=== PATIENT | female | born 1990 | race Caucasian/White ===

== ENCOUNTER 2024-08-15 00:11 | Inpatient (IN) | payer OTHER ==
[2024-08-15] MEDS: HYDROmorphone 1 MG/ML 1 ML SYRINGE IVP STA ×4 (00:33→04:14)
[2024-08-15] MEDS: KETOROLAC 15 MG/ML 1 ML VIAL IVP STA ×2 (00:34→02:06)
[2024-08-15] MEDS: SODIUM CHLORIDE 0.9% 1,000 ML IV STA ×3 (00:35→03:38)
[2024-08-15] MEDS: ONDANSETRON 4 MG/2 ML VIAL IVP STA (00:35)
[2024-08-15 00:40] LABS: Basophils % (A) 0 %; Eosinophils # (A) 0.4 k/uL (0-0.7); Eosinophils % (A) 3 %; HCT 43.7 % (34.0-46.0); HGB 14.3 gm/dL (11.4-16.0); Lymphocytes % (A) 16 %; MCH 28.6 pg (25.0-35.0); MCHC 32.7 g/dL (31.0-37.0); MCV 87.3 fL (80.0-100.0); Mean Platelet Volume 7.4; Monocytes # (A) 0.5 k/uL (0-1.0); Monocytes % (A) 4 %; Neutrophils # (A) 9.8 k/uL (1.3-7.7); Neutrophils % (A) 76 %; Platelet Count 228 k/uL (150-450); RBC 5.01 m/uL (3.80-5.40); RDW 13.8 % (11.5-15.5); WBC 12.9 k/uL (3.8-10.6)
--- NOTE | 2024-08-15 00:48 | ED ---
Back Pain HPI - General Chief Complaint: Back Pain/Injury Stated Complaint: Flank Pain Time Seen by Provider: 08/15/24 00:17 Source: patient, family, RN notes reviewed Limitations: no limitations - History of Present Illness Initial Comments: This is a 34-year-old female who presents to the emergency department for left flank pain. States that it started about 3 hours prior to arrival. She has associated nausea and vomiting. She does have a history of kidney stones and medullary sponge kidney. Most recent kidney stone was several years ago. States that this turned into a septic stone and she was managed with a lithotripsy. Pain feels like the last time she passed a kidney stone. MD Complaint: back pain - Related Data Allergies Allergy/AdvReac Type Severity Reaction Status Date / Time latex Allergy Rash/Hives Verified 08/15/24 00:15 Review of Systems ROS Statement: Those systems with pertinent positive or pertinent negative responses have been documented in the HPI. ROS Other: All systems not noted in ROS Statement are negative. Past Medical History Additional Past Medical History / Comment(s): Kidney disorder History of Any Multi-Drug Resistant Organisms: None Reported Past Surgical History: Section Past Psychological History: No Psychological Hx Reported Smoking Status: Current every day smoker Past Alcohol Use History: None Reported Past Drug Use History: None Reported General Exam Limitations: no limitations General appearance: alert, in distress Head exam: Present: atraumatic, normocephalic, normal inspection Respiratory exam: Present: normal lung sounds bilaterally. Absent: respiratory distress, wheezes, rales, rhonchi, stridor Cardiovascular Exam: Present: regular rate, normal rhythm, normal heart sounds. Absent: systolic murmur, diastolic murmur, rubs, gallop, clicks GI/Abdominal exam: Present: soft, tenderness (Left mid to lower abdomen), normal bowel sounds. Absent: distended Back exam: Present: CVA tenderness (L). Absent: CVA tenderness (R) Neurological exam: Present: alert, oriented X3, CN II-XII intact Psychiatric exam: Present: normal affect, normal mood Skin exam: Present: warm, dry, intact, normal color. Absent: rash Course Vital Signs 08/15/24 08/15/24 00:13 04:08 Temperature 98.1 F Pulse Rate 54 L 69 Respiratory 18 18 Rate Blood Pressure 141/94 109/71 O2 Sat by Pulse 99 98 Oximetry Medical Decision Making - Medical Decision Making This is a 34-year-old female who presents to the emergency department for left flank pain. Was pt. sent in by a medical professional or institution? @ -No Did you speak to anyone other than the patient for history? @ -No Did you review nursing and triage notes? @ -Yes, and I agree, it is accurate with regards to the patient's symptoms. Were old charts reviewed? @ -No Differential Diagnosis? @ -Differential Flank Pain: UTI, pyelonephritis, kidney stone, musculoskeletal, pancreatitis, cholecystitis, this is not meant to be an all-inclusive list. EKG interpreted by me (3pts min.)? @ -Not obtained X-rays interpreted by me (1pt min.)? @ -Not obtained CT interpreted by me (1pt min.)? @ -CT scan of the abdomen and pelvis obtained. My interpretation identifies a left ureteral calculus. U/S interpreted by me (1pt. min.)? @ -Not obtained What testing was considered but not performed? (CT, X-rays, U/S, labs)? Why? @ -None What meds were considered but not given? Why? @ -None Did you discuss the management of the patient with other professionals? @ -Yes, Dr. Curry, urology, who is agreeable to admission with urology as consult. Did you reconcile home meds? @ -No Was smoking cessation discussed for >3mins.? @ -No Was critical care preformed (if so, how long)? @ -No Were there social determinants of health that impacted care today? How? (Homelessness, low income, unemployed, alcoholism, drug addiction, transportation, low edu. Level, literacy, decrease access to med. care, senior care, rehab)? @ -No Was there de-escalation of care discussed even if they declined? (Discuss DNR or withdrawal of care, Hospice)? @ -No What co-morbidities impacted this encounter? (DM, HTN, Smoking, COPD, CAD, Cancer, CVA, Hep., AIDS, mental health diagnosis, sleep apnea, morbid obesity)? @ -None Was patient admitted / discharged? @ -Admitted. Lab work demonstrates leukocytosis with a white blood cell count of 12.9. Urinalysis consistent with infection and a large amount of blood. Urine sent for culture. CT scan of the abdomen and pelvis demonstrates a 6 mm obstructing stone in the left proximal ureter with hydroureter, hydronephrosis, and perinephric stranding. Her pain was very difficult to manage. She received a total of 4 mg of Dilaudid and 30 mg of Toradol over a few hours and continued to complain of 10 out of 10 pain. IV fluids and Zofran administered as well. Given the patient's intractable pain with associated infection, she was admitted to medicine with urology consult. Case discussed with Dr. Curry who is in agreement. She was given 2 g of Rocephin for associated UTI and blood culture obtained as well. Patient also kept n.p.o. per urology request. Case discussed with ED attending Dr. Green. Undiagnosed new problem with uncertain prognosis? @ -None Drug Therapy requiring intensive monitoring for toxicity (Heparin, Nitro, Insulin, Cardizem)? @ -None Were any procedures done? @ -None Diagnosis/symptom? @ -Left ureteral calculus, UTI, intractable pain Acute, or Chronic, or Acute on Chronic? @ -Acute Uncomplicated (without systemic symptoms) or Complicated (systemic symptoms)? @ -Complicated Side effects of treatment? @ -None Exacerbation, Progression, or Severe Exacerbation] @ -Not applicable Poses a threat to life or bodily function? @ -Yes, patient is unable to function with her level of discomfort. - Lab Data Result diagrams: 08/15/24 00:28 08/15/24 00:28 Lab Results 08/15/24 08/15/24 08/15/24 Range/Units 00:28 00:28 00:28 WBC 12.9 H (3.8-10.6) k/uL RBC 5.01 (3.80-5.40) m/uL Hgb 14.3 (11.4-16.0) gm/dL Hct 43.7 (34.0-46.0) % MCV 87.3 (80.0-100.0) fL MCH 28.6 (25.0-35.0) pg MCHC 32.7 (31.0-37.0) g/dL RDW 13.8 (11.5-15.5) % Plt Count 228 (150-450) k/uL MPV 7.4 Neutrophils % 76 % Lymphocytes % 16 % Monocytes % 4 % Eosinophils % 3 % Basophils % 0 % Neutrophils # 9.8 H (1.3-7.7) k/uL Lymphocytes # 2.0 (1.0-4.8) k/uL Monocytes # 0.5 (0-1.0) k/uL Eosinophils # 0.4 (0-0.7) k/uL Basophils # 0.0 (0-0.2) k/uL Sodium 138 (137-145) mmol/L Potassium 3.9 (3.5-5.1) mmol/L Chloride 110 H (98-107) mmol/L Carbon Dioxide 22 (22-30) mmol/L Anion Gap 6 mmol/L BUN 13 (7-17) mg/dL Creatinine 0.69 (0.52-1.04) mg/dL Est GFR (CKD-EPI)AfAm >90 (>60 ml/min/1.73 sqM) Est GFR (CKD-EPI)NonAf >90 (>60 ml/min/1.73 sqM) Glucose 111 H (74-99) mg/dL Plasma Lactic Acid Erich 0.9 (0.7-2.0) mmol/L Calcium 9.6 (8.4-10.2) mg/dL Total Bilirubin 0.6 (0.2-1.3) mg/dL AST 28 (14-36) U/L ALT 21 (4-34) U/L Alkaline Phosphatase 70 (38-126) U/L Total Protein 7.1 (6.3-8.2) g/dL Albumin 4.5 (3.5-5.0) g/dL HCG, Qual Not Detected Urine Color Urine Appearance (Clear) Urine pH (5.0-8.0) Ur Specific [place] (1.001-1.035) Urine Protein (Negative) Urine Glucose (UA) (Negative) Urine Ketones (Negative) Urine Blood (Negative) Urine Nitrite (Negative) Urine Bilirubin (Negative) Urine Urobilinogen (<2.0) mg/dL Ur Leukocyte Esterase (Negative) Urine RBC (0-5) /hpf Urine WBC (0-5) /hpf Ur Squamous Epith Cells (0-4) /hpf Urine Bacteria (None) /hpf Urine Mucus (None) /hpf Urine HCG, Qual (Not Detectd) 08/15/24 08/15/24 Range/Units 03:46 03:46 WBC (3.8-10.6) k/uL RBC (3.80-5.40) m/uL Hgb (11.4-16.0) gm/dL Hct (34.0-46.0) % MCV (80.0-100.0) fL MCH (25.0-35.0) pg MCHC (31.0-37.0) g/dL RDW (11.5-15.5) % Plt Count (150-450) k/uL MPV Neutrophils % % Lymphocytes % % Monocytes % % Eosinophils % % Basophils % % Neutrophils # (1.3-7.7) k/uL Lymphocytes # (1.0-4.8) k/uL Monocytes # (0-1.0) k/uL Eosinophils # (0-0.7) k/uL Basophils # (0-0.2) k/uL Sodium (137-145) mmol/L Potassium (3.5-5.1) mmol/L Chloride (98-107) mmol/L Carbon Dioxide (22-30) mmol/L Anion Gap mmol/L BUN (7-17) mg/dL Creatinine (0.52-1.04) mg/dL Est GFR (CKD-EPI)AfAm (>60 ml/min/1.73 sqM) Est GFR (CKD-EPI)NonAf (>60 ml/min/1.73 sqM) Glucose (74-99) mg/dL Plasma Lactic Acid Erich (0.7-2.0) mmol/L Calcium (8.4-10.2) mg/dL Total Bilirubin (0.2-1.3) mg/dL AST (14-36) U/L ALT (4-34) U/L Alkaline Phosphatase (38-126) U/L Total Protein (6.3-8.2) g/dL Albumin (3.5-5.0) g/dL HCG, Qual Urine Color Light Yellow Urine Appearance Cloudy H (Clear) Urine pH 7.0 (5.0-8.0) Ur Specific [place] 1.014 (1.001-1.035) Urine Protein Trace H (Negative) Urine Glucose (UA) Negative (Negative) Urine Ketones Negative (Negative) Urine Blood Large H (Negative) Urine Nitrite Negative (Negative) Urine Bilirubin Negative (Negative) Urine Urobilinogen <2.0 (<2.0) mg/dL Ur Leukocyte Esterase Large H (Negative) Urine RBC >182 H (0-5) /hpf Urine WBC >182 H (0-5) /hpf Ur Squamous Epith Cells 3 (0-4) /hpf Urine Bacteria Many H (None) /hpf Urine Mucus Occasional H (None) /hpf Urine HCG, Qual Not Detected (Not Detectd) - Radiology Data Radiology results: report reviewed, image reviewed Disposition Clinical Impression: Left ureteral calculus, UTI (urinary tract infection), Intractable pain Disposition: ADMITTED IP TO THIS HOSP Referrals: Joel Rodriguez [Primary Care Provider] - 1-2 days
[2024-08-15 00:55] LABS: ALT 21 U/L (4-34); AST 28 U/L (14-36); African American GFR (CKD) >90 (>60 ml/min/1.73 sqM); Albumin 4.5 g/dL (3.5-5.0); Alkaline Phosphatase 70 U/L (38-126); Anion Gap 6 mmol/L; Blood Urea Nitrogen 13 mg/dL (7-17); Calcium 9.6 mg/dL (8.4-10.2); Carbon Dioxide 22 mmol/L (22-30); Chloride 110 mmol/L (98-107); Glucose 111 mg/dL (74-99); Non-African American GFR(CKD) >90 (>60 ml/min/1.73 sqM); Potassium 3.9 mmol/L (3.5-5.1); Sodium 138 mmol/L (137-145); Total Bilirubin 0.6 mg/dL (0.2-1.3); Total Protein 7.1 g/dL (6.3-8.2)
[2024-08-15 01:08] LABS: HCG,Qualitative Serum Not Detected
--- NOTE | 2024-08-15 02:38 | CT ---
EXAM: CT Abdomen and Pelvis Without Intravenous Contrast CLINICAL HISTORY: Poss kindey stone, Left flank pain TECHNIQUE: Axial computed tomography images of the abdomen and pelvis without intravenous contrast. CTDI is 6.3 mGy and DLP is 375.1 mGy-cm. This CT exam was performed using one or more of the following dose reduction techniques: automated exposure control, adjustment of the mA and/or kV according to patient size, and/or use of iterative reconstruction technique. Coronal and sagittal reformatted images were created and reviewed. 478 images COMPARISON: No relevant prior studies available. FINDINGS: Lung bases: Unremarkable. No mass. No consolidation. ABDOMEN: Liver: Unremarkable. Gallbladder and bile ducts: Unremarkable. No calcified stones. No ductal dilation. Pancreas: Unremarkable. No ductal dilation. Spleen: Unremarkable. No splenomegaly. Adrenals: Unremarkable. No mass. Kidneys and ureters: Multiple nonobstructing stones in each kidney, measuring up to 6 mm. 6 mm obstructing stone in the proximal left ureter, about 7.5 cm from renal pelvis causes mild hydroureter, hydronephrosis and perinephric stranding. Stomach and bowel: Unremarkable. No obstruction. No mucosal thickening. PELVIS: Appendix: Normal appendix. Bladder: Unremarkable. No stones. Reproductive: Unremarkable as visualized. ABDOMEN and PELVIS: Intraperitoneal space: Unremarkable. No free air. No significant fluid collection. Bones/joints: No acute findings. Soft tissues: Unremarkable. Vasculature: Unremarkable. No abdominal aortic aneurysm. Lymph nodes: Unremarkable. No enlarged lymph nodes. IMPRESSION: 6 mm obstructing stone in the proximal left ureter, about 7.5 cm from renal pelvis causes mild hydroureter, hydronephrosis and perinephric stranding.
[2024-08-15 04:32] LABS: Appearance,Urine Cloudy (Clear); Bacteria,Urine Many /hpf; Bilirubin,Urine Negative (Negative); Blood,Urine Large (Negative); Color,Urine Light Yellow; Glucose,Urine (UA) Negative (Negative); Ketones,Urine Negative (Negative); Leukocyte Esterase,Urine Large (Negative); Mucus,Urine Occasional /hpf; Nitrite,Urine Negative (Negative); Protein,Urine Trace (Negative); RBC,Urine >182 /hpf (0-5); Specific Gravity,Urine 1.014 (1.001-1.035); Squamous Epithelial Cell,Urine 3 /hpf (0-4); Urobilinogen,Urine <2.0 mg/dL (<2.0); WBC,Urine >182 /hpf (0-5)
[2024-08-15] MEDS ORDERED: ACETAMINOPHEN TAB 325 MG TAB PO PRN (05:10)
[2024-08-15] MEDS ORDERED: ONDANSETRON 4 MG/2 ML VIAL IVP PRN (05:10)
[2024-08-15] MEDS ORDERED: NALOXONE 0.4 MG/ML 1 ML VIAL IV PRN (05:10)
[2024-08-15] MEDS: FAMOTIDINE 20 MG/2 ML VIAL IV SCH (07:55)
[2024-08-15] MEDS: HYDROmorphone 1 MG/ML 1 ML SYRINGE IVP PRN (07:57)
[2024-08-15] MEDS: SODIUM CHLORIDE 0.9% 1,000 ML IV SCH (07:59)
[2024-08-15] MEDS: HEPARIN SODIUM,PORCINE 5,000 UNIT/ML 1 ML VIAL SQ SCH (08:12)
[2024-08-15] MEDS: KETOROLAC 15 MG/ML 1 ML VIAL IVP PRN (09:38)
[2024-08-15] MEDS: IV FLUID CONTINUATION 1,000 ML IV ONE ×2 (11:56)
--- NOTE | 2024-08-15 12:01 | P.GSCN ---
History of Present Illness Consult date: 08/15/24 Reason for Consult: Left ureteral stone History of present illness: This is a 34-year-old female with a history of recurrent kidney stones. Pr esented to the hospital with left-sided flank pain, patient was having intractable pain in the ER. Underwent a CT abdomen pelvis that showed evidence of a 6 mm left-sided proximal stone and a multiple left-sided renal stones. Patient continues to have pain despite IV pain medications. Denies any dysuria or gross hematuria. Pain is associated with nausea and vomiting. She does have a history of recurrent kidney stones and has underwent left ureteroscopy in the past. Morning on evaluation she continues to have pain. Hemodynamically she is stable, urinalysis is concerning for UTI Past Medical History Additional Past Medical History / Comment(s): ALISON related to kidney stone UTI History of Any Multi-Drug Resistant Organisms: None Reported Past Surgical History: Section Additional Past Surgical History / Comment(s): Lithotripsy right side uretal stent Additional Past Anesthesia/Blood Transfusion Reaction / Comm: NA Past Psychological History: Anxiety Smoking Status: Current every day smoker Past Alcohol Use History: None Reported Past Drug Use History: None Reported - Past Family History Mother Family Medical History: Cancer Additional Family Medical History / Comment(s): breast CA, leukemia Father Family Medical History: Diabetes Mellitus Medications and Allergies Home Medications Medication Instructions Recorded Confirmed Type LORazepam [Ativan] 1 mg PO DAILY PRN 08/15/24 08/15/24 History Allergies Allergy/AdvReac Type Severity Reaction Status Date / Time latex Allergy Rash/Hives Verified 08/15/24 06:37 Surgical - Exam Vital Signs Temp Pulse Resp BP Pulse Ox 98.1 F 54 L 18 141/94 99 08/15/24 00:13 08/15/24 00:13 08/15/24 00:13 08/15/24 00:13 08/15/24 00:13 - General no distress, severe pain - Eyes normal ocular movement, no pale - ENT normal nares, normal mucosa - Respiratory normal expansion, normal respiratory effort - Abdomen Abdomen: soft, non tender - Psychiatric oriented to time, oriented to person, oriented to place Results - Labs 08/15/24 00:28 08/15/24 00:28 Abnormal Lab Results - Last 24 Hours (Table) 08/15/24 08/15/24 08/15/24 Range/Units 00:28 00:28 03:46 WBC 12.9 H (3.8-10.6) k/uL Neutrophils # 9.8 H (1.3-7.7) k/uL Chloride 110 H (98-107) mmol/L Glucose 111 H (74-99) mg/dL Urine Appearance Cloudy H (Clear) Urine Protein Trace H (Negative) Urine Blood Large H (Negative) Ur Leukocyte Esterase Large H (Negative) Urine RBC >182 H (0-5) /hpf Urine WBC >182 H (0-5) /hpf Urine Bacteria Many H (None) /hpf Urine Mucus Occasional H (None) /hpf Diabetes panel 08/15/24 Range/Units 00:28 Sodium 138 (137-145) mmol/L Potassium 3.9 (3.5-5.1) mmol/L Chloride 110 H (98-107) mmol/L Carbon Dioxide 22 (22-30) mmol/L BUN 13 (7-17) mg/dL Creatinine 0.69 (0.52-1.04) mg/dL Glucose 111 H (74-99) mg/dL Calcium 9.6 (8.4-10.2) mg/dL AST 28 (14-36) U/L ALT 21 (4-34) U/L Alkaline Phosphatase 70 (38-126) U/L Total Protein 7.1 (6.3-8.2) g/dL Albumin 4.5 (3.5-5.0) g/dL Calcium panel 08/15/24 Range/Units 00:28 Calcium 9.6 (8.4-10.2) mg/dL Albumin 4.5 (3.5-5.0) g/dL Pituitary panel 08/15/24 Range/Units 00:28 Sodium 138 (137-145) mmol/L Potassium 3.9 (3.5-5.1) mmol/L Chloride 110 H (98-107) mmol/L Carbon Dioxide 22 (22-30) mmol/L BUN 13 (7-17) mg/dL Creatinine 0.69 (0.52-1.04) mg/dL Glucose 111 H (74-99) mg/dL Calcium 9.6 (8.4-10.2) mg/dL Adrenal panel 08/15/24 Range/Units 00:28 Sodium 138 (137-145) mmol/L Potassium 3.9 (3.5-5.1) mmol/L Chloride 110 H (98-107) mmol/L Carbon Dioxide 22 (22-30) mmol/L BUN 13 (7-17) mg/dL Creatinine 0.69 (0.52-1.04) mg/dL Glucose 111 H (74-99) mg/dL Calcium 9.6 (8.4-10.2) mg/dL Total Bilirubin 0.6 (0.2-1.3) mg/dL AST 28 (14-36) U/L ALT 21 (4-34) U/L Alkaline Phosphatase 70 (38-126) U/L Total Protein 7.1 (6.3-8.2) g/dL Albumin 4.5 (3.5-5.0) g/dL Assessment and Plan Assessment: 34-year-old female with a 6 mm left-sided proximal stone and UTI. Is having intractable pain secondary to her stone. Discussed with her given the pain and a UTI the option of left-sided stent insertion. Risk benefit and rationale was discussed. Did discuss with her she will eventually require left-sided ureteroscopy with holmium laser and stent removal as an outpatient once her UTI resolves
[2024-08-15] MEDS ORDERED: KETOROLAC 15 MG/ML 1 ML VIAL ONE (12:08)
[2024-08-15] MEDS ORDERED: MIDAZOLAM 2 MG/2 ML VIAL ONE (12:08)
[2024-08-15] MEDS ORDERED: ceFAZolin 1 GM/50 ML BAG (PMX) ONE (12:08)
[2024-08-15] MEDS ORDERED: fentaNYL (PF) 50 MCG/ML 2 ML AMP ONE (12:08)
[2024-08-15] MEDS ORDERED: PROPOFOL 10 MG/ML 20 ML VIAL IV ONE (12:08)
[2024-08-15] MEDS ORDERED: LIDOCAINE 1% INJ 10MG/ML (20 ML MDV) ONE (12:08)
[2024-08-15] MEDS: ONDANSETRON 4 MG/2 ML VIAL IVP ONE (12:12)
[2024-08-15] MEDS: DEXAMETHASONE SOD PHOSPHATE 4 MG/ML 1 ML VIAL IVP ONE (12:12)
[2024-08-15] MEDS: SODIUM CHLORIDE 0.9% 100 ML with ceFAZolin 2,000 MG IV ONE (12:13)
--- NOTE | 2024-08-15 12:19 | P.EN ---
i came to see the pt and she was not in her room, as per bedside nurse she went to the OR We will continue to follow
--- NOTE | 2024-08-15 13:01 | FL ---
EXAMINATION TYPE: FL guidance operating room DATE OF EXAM: 08/15/2024 HISTORY: Fluoroscopy time Total dose area product (DAP) in uGy*m?, mGy*cm? (or similar): 4.5278 IMPRESSION: 1. Fluoroscopy time. [facility], , 08/15/2024 12:59 PM
--- NOTE | 2024-08-15 17:17 | P.OP ---
Date of Procedure: 08/15/24 Preoperative Diagnosis: Left ureteral stone Postoperative Diagnosis: Same Procedure(s) Performed: Cystoscopy, left ureteroscopy, and stent insertion Anesthesia: GETA Estimated Blood Loss (ml): 1 Pathology: none sent Condition: stable Disposition: PACU Indications for Procedure: 34-year-old female with a 6 mm left-sided proximal stone and UTI. Is having intractable pain secondary to her stone. Discussed with her given the pain and a UTI the option of left-sided stent insertion. Risk benefit and rationale was discussed. Did discuss with her she will eventually require left-sided ureteroscopy with holmium laser and stent removal as an outpatient once her UTI resolves Operative Findings: 2 left impacted distal ureteral stones Description of Procedure: Patient brought the operating, general anesthesia was induced. She was prepped and draped in sterile fashion placed in dorsolithotomy position. Cystoscopy fitted with a 22 [place] sheath was inserted per urethra, cystoscopy was performed which showed no abnormality within the bladder. Attention was then carried to the left ureteral orifice, at this point I advanced a sensor wire per ureteroscope and into the left ureteral orifice, resistance was met at the level of the stone, I did attempt to manipulate the wire but was unable to, of note patient had 2 distal radiopaque ureteral stones. At this time I switched to a Glidewire, and reattempted to advance the wire I was still unable to. At this point a semirigid ureteroscope was inserted per urethra and advanced up the left ureteral orifice, this point I saw stone at the distal ureter. I was able to navigate a sensor wire past the stone and into the kidney under fluoroscopy. Next the cystoscope was backloaded over the wire, next ureteral stent was passed over the wire, the proximal curl was visualized on fluoroscopy and the distal curl was visualized using the cystoscope. The bladder was emptied at the end of the case. Patient tolerated procedure was taken to recovery in stable condition
[2024-08-15] MEDS: LORazepam 1 MG TAB PO STA (21:39)
[2024-08-16] MEDS: HYDROmorphone 0.5 MG/0.5 ML SYRINGE IVP PRN (08:16)
[2024-08-16 09:13] LABS: Basophils # (A) 0.05 X 10*3/uL (0.00-0.10); Basophils % (A) 0.4 %; Eosinophils # (A) 0.09 X 10*3/uL (0.04-0.35); Eosinophils % (A) 0.7 %; HCT 38.8 % (37.2-46.3); HGB 12.3 g/dL (12.0-15.0); Lymphocytes # (A) 1.33 X 10*3/uL (0.90-5.00); Lymphocytes % (A) 10.9 %; MCH 28.7 pg (27.0-32.0); MCHC 31.7 g/dL (32.0-37.0); MCV 90.4 FL (80.0-97.0); Monocytes # (A) 0.52 X 10*3/uL (0.20-1.00); Monocytes % (A) 4.3 %; NRBC Per 100 WBC 0 X 10*3/uL (0.00-0.01); Neutrophils # (A) 10.15 X 10*3/uL (1.80-7.70); Neutrophils % (A) 83.4 %; Platelet Count 160 X 10*3/uL (140-440); RBC 4.29 X 10*6/uL (4.10-5.20); RDW 14.5 % (11.5-14.5); WBC 12.18 X 10*3/uL (4.50-10.00)
[2024-08-16 09:54] LABS: BUN/Creat Ratio 12.14 Ratio (12.00-20.00); Blood Urea Nitrogen 8.5 mg/dL (9.0-27.0); Calcium 8.3 mg/dL (8.7-10.3); Carbon Dioxide 23.5 mmol/L (21.6-31.8); Chloride 108 mmol/L (96-109); Glucose 89 mg/dL (70-110); Potassium 4.4 mmol/L (3.5-5.5); Sodium 142 mmol/L (135-145)
--- NOTE | 2024-08-16 10:49 | P.PN ---
Subjective Progress Note Date: 08/16/24 No acute overnight event, indicates pain has improved but is complaining of urinary frequency. Remains afebrile. Urine cultures growing gram-negative bacilli. Blood culture growing gram-positive cocci Objective - Vital Signs Vital signs: Vital Signs Temp 98.2 F 08/16/24 07:24 Pulse 67 08/16/24 07:24 Resp 16 08/16/24 07:24 BP 122/75 08/16/24 07:24 Pulse Ox 98 08/16/24 07:24 FiO2 Intake & Output 08/15/24 08/16/24 08/16/24 18:59 06:59 18:59 Intake Total 650 0 Output Total 1 Balance 649 0 Weight 63.503 kg Intake: IV 650 Oral 0 Output: Estimated Blood Loss 1 Other: Voiding Method Toilet Toilet Toilet # Voids 3 1 - Constitutional General appearance: Present: no acute distress - Gastrointestinal General gastrointestinal: Present: soft, tenderness. Absent: distended - Labs CBC & Chem 7: 08/16/24 06:04 08/16/24 06:04 Labs: Abnormal Lab Results - Last 24 Hours (Table) 08/16/24 08/16/24 08/16/24 Range/Units 06:04 06:04 06:04 WBC 12.18 H (4.50-10.00) X 10*3/uL MCHC 31.7 L (32.0-37.0) g/dL Neutrophils # 10.15 H (1.80-7.70) X 10*3/uL BUN 8.5 L (9.0-27.0) mg/dL Calcium 8.3 L (8.7-10.3) mg/dL Procalcitonin 12.60 H (0.02-0.50) ng/mL Microbiology - Last 24 Hours (Table) 08/15/24 03:46 Urine Culture - Preliminary Urine,Voided Gram Neg Bacilli 08/15/24 04:42 Blood Culture Gram Stain - Preliminary Blood Blood Culture - Preliminary Molecular ID Assessment and Plan Assessment: Status post left-sided stent insertion yesterday. Urine culture growing gram- negative bacilli blood culture growing gram-positive cocci. On presentation patient did not appear to be bacteremic and given that it is growing gram- positive cocci which is different from the urine culture most likely this is a contaminant, do recommend repeat a blood culture at this time. From urology standpoint she is okay for discharge once the urine culture is finalized. We w ill get her set up for an outpatient left-sided ureteroscopy with holmium laser possible right ureteroscopy with holmium laser of note she wants to address her right-sided stone also as an outpatient.
[2024-08-16] MEDS: OXYBUTYNIN XL 5 MG TAB.ER.24 PO SCH (11:45)
[2024-08-16] MEDS: LORazepam 1 MG TAB PO PRN (11:53)
[2024-08-16] MEDS ORDERED: VANCOMYCIN IV PER PHARMACY 1 EACH MISC MISCELLANE PRN (12:06)
[2024-08-16] MEDS: VANCOMYCIN 1,250 MG in SODIUM CHLORIDE 0.9% 250 ML IVPB SCH (14:08)
--- NOTE | 2024-08-16 17:36 | P.HPIM ---
History of Present Illness H&P Date: 08/16/24 History of present illness: This is a 34-year-old female with past medical history significant for recurrent kidney stone who presented to hospital with left-sided flank pain. Patient was noted to have intractable pain in the ED. Patient had a CT abdomen pelvis that showed evidence of 6 mm left-sided proximal stone and a multiple left-sided renal stones. Patient required IV pain medications for pain control. Patient denied any fever, chills, dysuria, hematuria. Patient complained of nausea v omiting associated with pain. REVIEW OF SYSTEMS: CONSTITUTIONAL: No fever, no malaise, no fatigue. HEENT: No recent visual problems or hearing problems. Denied any sore throat. CARDIOVASCULAR: No chest pain, orthopnea, PND, no palpitations, no syncope. PULMONARY: No shortness of breath, no cough, no hemoptysis. GASTROINTESTINAL: No diarrhea, no nausea, no vomiting, no abdominal pain. NEUROLOGICAL: No headaches, no weakness, no numbness. HEMATOLOGICAL: Denies any bleeding or petechiae. GENITOURINARY: Denies any burning micturition, frequency, or urgency. MUSCULOSKELETAL/RHEUMATOLOGICAL: Denies any joint pain, swelling, or any muscle pain. ENDOCRINE: Denies any polyuria or polydipsia. The rest of the 14-point review of systems is negative. PHYSICAL EXAMINATION: GENERAL: The patient is A&O x3, NAD HEENT: EOMI, Sclerae anicteric, Moist Mucous membranes Neck: Supple, Non tender, No JVD PULMONARY: Equal breath souds B/L, No wheezing, No crackles. CARDIOVASCULAR: S1, S2 present. No murmurs, rubs, or gallops. ABDOMEN: Soft, nontender, nondistended, normoactive bowel sounds. No guarding or rebound tenderness. MUSCULOSKELETAL: No edema, No cyanosis. No clubbing. Normal ROM. Intact peripheral pulses. NEUROLOGICAL: CN 2-12 grossly intact. No FND Assessment and plan: Left renal stone: UTI: Positive blood culture: Plan: Presented with left-sided flank pain, CT abdomen pelvis showed 6 mm left ureteral stone Urology consultedstatus post cystoscopy and left ureteral stent placement on 08/15. Pain control, requiring IV pain medications Urine culture growing gram-negative bacilli Blood culture growing GPC ID consulted Continue Rocephin DVT prophylaxis Heparin Monitor vital signs and labs Labs and medication were reviewed. Continue same treatment. Further recommendations as per clinical course of the patient Dictation was produced using [employer] dictation software. please excuse any grammatical, word or spelling errors. Past Medical History Additional Past Medical History / Comment(s): ALISON related to kidney stone UTI History of Any Multi-Drug Resistant Organisms: None Reported Past Surgical History: Section Additional Past Surgical History / Comment(s): Lithotripsy right side uretal stent Additional Past Anesthesia/Blood Transfusion Reaction / Comment(s): NA Past Psychological History: Anxiety Smoking Status: Current every day smoker Past Alcohol Use History: None Reported Past Drug Use History: None Reported - Past Family History Mother Family Medical History: Cancer Additional Family Medical History / Comment(s): breast CA, leukemia Father Family Medical History: Diabetes Mellitus Medications and Allergies Home Medications Medication Instructions Recorded Confirmed Type LORazepam [Ativan] 1 mg PO DAILY PRN 08/15/24 08/15/24 History Allergies Allergy/AdvReac Type Severity Reaction Status Date / Time latex Allergy Rash/Hives Verified 08/15/24 06:37 Physical Exam Vitals: Vital Signs Temp Pulse Resp BP BP Pulse Ox 08/16/24 13:32 98.6 F 74 16 119/74 99 08/16/24 07:24 98.2 F 67 16 122/75 98 08/16/24 01:51 97.9 F 60 16 112/70 98 08/15/24 20:00 16 08/15/24 19:17 99.6 F 87 16 112/60 97 Intake and Output 08/16/24 08/16/24 08/16/24 06:59 14:59 22:59 Other: Voiding Method Toilet # Voids 1 Results CBC & Chem 7: 08/16/24 06:04 08/16/24 06:04 Labs: Abnormal Lab Results - Last 24 Hours (Table) 08/16/24 08/16/24 08/16/24 Range/Units 06:04 06:04 06:04 WBC 12.18 H (4.50-10.00) X 10*3/uL MCHC 31.7 L (32.0-37.0) g/dL Neutrophils # 10.15 H (1.80-7.70) X 10*3/uL BUN 8.5 L (9.0-27.0) mg/dL Calcium 8.3 L (8.7-10.3) mg/dL Procalcitonin 12.60 H (0.02-0.50) ng/mL Microbiology - Last 24 Hours (Table) 08/15/24 03:46 Urine Culture - Preliminary Urine,Voided Gram Neg Bacilli 08/15/24 04:42 Blood Culture Gram Stain - Preliminary Blood Blood Culture - Preliminary Molecular ID Thrombosis Risk Factor Assmnt - Choose All That Apply Each Factor Represents 1 point: Minor surgery planned Other Risk Factors: No Other congenital or acquired thrombophilia - If yes, enter type in comment: No Thrombosis Risk Factor Assessment Total Risk Factor Score: 1 Thrombosis Risk Factor Assessment Level: Low Risk
[2024-08-16] MEDS: HYDROcodone/APAP 5-325MG 1 EACH TAB PO PRN (18:21)
--- NOTE | 2024-08-17 07:10 | P.CONS ---
History of Present Illness - Reason for Consult Consult date: 08/16/24 Bacteremia Requesting physician: Mahendra Pulido - Chief Complaint Left flank pain x 1 day - History of Present Illness Patient is a 34-year-old female with a past medical history significant for sepsis secondary to kidney stone anxiety current everyday smoker presenting to the hospital for evaluation of left flank pain symptoms started 3 hours before presentation to the hospital patient was describing the pain to be sharp almost 10 out of 10 in severity with associated nausea and vomiting patient on presentation to the hospital was afebrile no fever have been recorded subsequently patient was not tachycardic hypotensive or hypoxic she did have white count of 12.9 repeat is 12.18 creatinine 0.69 urine has been positive patient did have abdominal pelvis CT suggestive of 6 mm obstructive stone in the proximal left ureteral patient was evaluated by urology and the patient is status post left ureteral stent placement patient urine is growing gram-negative blood cultures came back positive with gram-positive cocci prompting this consultation Review of Systems Positive point and negatives has been mentioned in the HPI, complete review of systems was performed and all other systems are negative Past Medical History Additional Past Medical History / Comment(s): ALISON related to kidney stone UTI History of Any Multi-Drug Resistant Organisms: None Reported Past Surgical History: Section Additional Past Surgical History / Comment(s): Lithotripsy right side uretal stent Additional Past Anesthesia/Blood Transfusion Reaction / Comm: NA Past Psychological History: Anxiety Smoking Status: Current every day smoker Past Alcohol Use History: None Reported Past Drug Use History: None Reported - Past Family History Mother Family Medical History: Cancer Additional Family Medical History / Comment(s): breast CA, leukemia Father Family Medical History: Diabetes Mellitus Medications and Allergies Home Medications Medication Instructions Recorded Confirmed Type LORazepam [Ativan] 1 mg PO DAILY PRN 08/15/24 08/15/24 History Allergies Allergy/AdvReac Type Severity Reaction Status Date / Time latex Allergy Rash/Hives Verified 08/15/24 06:37 Physical Exam Vitals: Vital Signs Temp Pulse Resp BP BP Pulse Ox 08/16/24 07:24 98.2 F 67 16 122/75 98 08/16/24 01:51 97.9 F 60 16 112/70 98 08/15/24 20:00 16 08/15/24 19:17 99.6 F 87 16 112/60 97 08/15/24 15:23 86 127/81 99 08/15/24 15:08 87 130/84 99 08/15/24 14:55 82 137/84 99 08/15/24 14:38 73 140/85 99 08/15/24 14:32 72 141/71 99 08/15/24 14:02 64 161/101 100 08/15/24 13:47 69 163/95 100 08/15/24 13:28 79 16 157/62 99 08/15/24 13:15 69 16 156/75 99 08/15/24 13:00 67 14 160/89 99 08/15/24 12:51 97.6 F 98 14 138/67 99 Intake and Output 08/15/24 08/16/24 08/16/24 22:59 06:59 14:59 Intake Total 0 Balance 0 Intake: Oral 0 Other: Voiding Method Toilet Toilet # Voids 1 1 GENERAL DESCRIPTION: Middle-aged female lying in bed, no distress. No tachypnea or accessory muscle of respiration use. HEENT: Shows Pallor , no scleral icterus. Oral mucous membrane is dry. NECK: Trachea central, no thyromegaly. LUNGS: Unlabored breathing. Clear to auscultation anteriorly. No wheeze or crackle. HEART: S1, S2, regular rate and rhythm. No loud murmur ABDOMEN: Soft, no tenderness , guarding or rigidity, no organomegaly EXTREMITIES: No edema of feet. SKIN: No rash, no masses palpable. NEUROLOGICAL: The patient is awake, alert, oriented x3, mood and affect normal. Results CBC & Chem 7: 08/16/24 06:04 08/16/24 06:04 Labs: Abnormal Lab Results - Last 24 Hours (Table) 08/16/24 08/16/24 08/16/24 Range/Units 06:04 06:04 06:04 WBC 12.18 H (4.50-10.00) X 10*3/uL MCHC 31.7 L (32.0-37.0) g/dL Neutrophils # 10.15 H (1.80-7.70) X 10*3/uL BUN 8.5 L (9.0-27.0) mg/dL Calcium 8.3 L (8.7-10.3) mg/dL Procalcitonin 12.60 H (0.02-0.50) ng/mL Microbiology - Last 24 Hours (Table) 08/15/24 03:46 Urine Culture - Preliminary Urine,Voided Gram Neg Bacilli 08/15/24 04:42 Blood Culture Gram Stain - Preliminary Blood Blood Culture - Preliminary Molecular ID Assessment and Plan (1) Complicated UTI (urinary tract infection) Current Visit: Yes Status: Acute Code(s): N39.0 - URINARY TRACT INFECTION, SITE NOT SPECIFIED SNOMED Code(s): 02166424 (2) Positive blood culture Current Visit: Yes Status: Acute Code(s): R78.81 - BACTEREMIA SNOMED Code(s): 417999691 (3) Leukocytosis Current Visit: Yes Status: Acute Code(s): D72.829 - ELEVATED WHITE BLOOD CELL COUNT, UNSPECIFIED SNOMED Code(s): 516979428 Plan: 1patient with a positive blood culture in this patient presenting to the hospital with left flank pain has been diagnosed with left-sided hydronephrosis secondary to ureteral stone status post cystoscopy and ureteral stent placement patient did have a positive UA concerning for complicated UTI however urine is growing gram-negative with a positive blood culture questionable skin contamination awaiting ID sensitivity 2blood culture have repeated document clearance of bacteremia 3continue with Rocephin and vancomycin added while waiting for the culture to finalize We will follow on clinical condition and cultures to further adjust medication if needed Thank you for this consultation we will follow the patient along with you Dictation was produced using [employer] dictation software. please excuse any grammatical, word or spelling errors.
[2024-08-17 07:54] VITALS: RESP 16
[2024-08-17 09:52] VITALS: PULSE 51
--- NOTE | 2024-08-17 10:31 | P.PN ---
Subjective No acute overnight event, on oxybutynin, still having urinary frequency urine culture growing gram-negative bacilli Objective - Vital Signs Vital signs: Vital Signs Temp 98.5 F 08/17/24 07:17 Pulse 51 L 08/17/24 09:51 Resp 16 08/17/24 07:17 BP 175/61 08/17/24 09:51 Pulse Ox 98 08/17/24 07:17 FiO2 Intake & Output 08/16/24 08/17/24 08/17/24 18:59 06:59 18:59 Intake Total 1302 1960 Balance 1302 1960 Intake: Intake, IV Titration 1600 Amount Sodium Chloride 0.9% 1, 1300 000 ml @ 130 mls/hr IV . Q7H42M [facility] Rx#:[id number] Vancomycin 1,250 mg In 250 Sodium Chloride 0.9% 250 ml @ 125 mls/hr IVPB Q12H [facility] Rx#:[id number] cefTRIAXone 2 gm In 50 Sodium Chloride 0.9% 50 ml @ 100 mls/hr IVPB Q24HR@2100 [facility] Rx#: [id number] Oral 1302 360 Other: Voiding Method Toilet Toilet Toilet # Voids 3 1 - Constitutional General appearance: Present: no acute distress - Gastrointestinal General gastrointestinal: Present: soft. Absent: distended, tenderness - Psychiatric Psychiatric: Present: A&O x's 3 - Labs CBC & Chem 7: 08/16/24 06:04 08/16/24 06:04 Labs: Microbiology - Last 24 Hours (Table) 08/15/24 03:46 Urine Culture - Preliminary Urine,Voided Gram Neg Bacilli 08/15/24 04:42 Blood Culture Gram Stain - Preliminary Blood Blood Culture - Preliminary Molecular ID Assessment and Plan Assessment: Status post left-sided stent insertion yesterday. Urine culture growing gram- negative bacilli blood culture growing gram-positive cocci. On presentation patient did not appear to be bacteremic and given that it is growing gram- positive cocci which is different from the urine culture most likely this is a contaminant, infectious diseases on board. From urology standpoint she is okay for discharge once the urine culture is finalized. We will get her set up for an outpatient left-sided ureteroscopy with holmium laser possible right ureteroscopy with holmium laser of note she wants to address her right-sided stone also as an outpatient. She is tolerating a diet, IV fluid can be hep- locked from urology standpoint as this will help with her urinary frequency
[2024-08-17 13:21] VITALS: BP 159/98; TEMP 98.2
--- NOTE | 2024-08-17 13:39 | P.PN ---
Subjective Progress Note Date: 08/17/24 Principal diagnosis: Reason for follow-up is complicated UTI and positive blood culture Patient is a 34-year-old female with a past medical history significant for sepsis secondary to kidney stone anxiety current everyday smoker presenting to the hospital for evaluation of left flank pain patient has been diagnosed with a complicated UTI with the left-sided hydronephrosis requiring cystoscopy and ureteral stent placement blood culture came positive with gram-positive cocci prompting this consultation. On today's evaluation that is 08/17/2024, Patient is afebrile patient is currently on room air and denies having any shortness of breath, the patient denies any chest pain or cough, the patient denies any nausea vomiting has been complaining of some lower abdominal discomfort and did not have any bowel movement for the last few days. Patient did not have any CBC done today urine with E. coli sensitive pathogen blood culture with staph epi Objective - Vital Signs Vital signs: Vital Signs Temp 98.5 F 08/17/24 07:17 Pulse 51 L 08/17/24 09:51 Resp 16 08/17/24 07:17 BP 175/61 08/17/24 09:51 Pulse Ox 98 08/17/24 07:17 FiO2 Intake & Output 08/16/24 08/17/24 08/17/24 18:59 06:59 18:59 Intake Total 1302 1960 Balance 1302 1960 Intake: Intake, IV Titration 1600 Amount Sodium Chloride 0.9% 1, 1300 000 ml @ 130 mls/hr IV . Q7H42M [facility] Rx#:[id number] Vancomycin 1,250 mg In 250 Sodium Chloride 0.9% 250 ml @ 125 mls/hr IVPB Q12H [facility] Rx#:[id number] cefTRIAXone 2 gm In 50 Sodium Chloride 0.9% 50 ml @ 100 mls/hr IVPB Q24HR@2100 [facility] Rx#: [id number] Oral 1302 360 Other: Voiding Method Toilet Toilet Toilet # Voids 3 1 - Exam GENERAL DESCRIPTION: Middle-age female up in the chair in no distress RESPIRATORY SYSTEM: Unlabored breathing , decreased breath sounds at bases HEART: S1 S2 regular rate and rhythm , ABDOMEN: Soft , no tenderness EXTREMITIES: No edema feet - Labs CBC & Chem 7: 08/16/24 06:04 08/16/24 06:04 Labs: Microbiology - Last 24 Hours (Table) 08/15/24 03:46 Urine Culture - Preliminary Urine,Voided Gram Neg Bacilli 08/15/24 04:42 Blood Culture Gram Stain - Preliminary Blood Blood Culture - Preliminary Molecular ID Assessment and Plan (1) Complicated UTI (urinary tract infection) Current Visit: Yes Status: Acute Code(s): N39.0 - URINARY TRACT INFECTION, SITE NOT SPECIFIED SNOMED Code(s): 51293718 (2) Positive blood culture Current Visit: Yes Status: Acute Code(s): R78.81 - BACTEREMIA SNOMED Code(s): 536614268 (3) Leukocytosis Current Visit: Yes Status: Acute Code(s): D72.829 - ELEVATED WHITE BLOOD CELL COUNT, UNSPECIFIED SNOMED Code(s): 302728137 Plan: 1patient with a positive blood culture in this patient presenting to the hospital with left flank pain has been diagnosed with left-sided hydronephrosis secondary to ureteral stone status post cystoscopy and ureteral stent placement patient did have a positive UA concerning for complicated UTI however urine has been finalized with E. coli that is a sensitive pathogen 2blood culture has been finalized with staph epi likely skin contamination we will discontinue vancomycin 3patient to continue with Rocephin while inpatient however finishing therapy with oral Ceftin prescription has been sent to the pharmacy will also give a dose of lactulose for her constipation Dictation was produced using [employer] dictation software. please excuse any grammatical, word or spelling errors. Time with Patient: Less than 30
[2024-08-17] MEDS: LACTULOSE 20 GM/30 ML CUP PO ONE (14:04)
--- NOTE | 2024-08-17 17:37 | P.DS ---
Providers Date of admission: 08/15/24 05:11 Expected date of discharge: 08/17/24 Attending physician: Jasmina Sagastume Consults: 08/15/24 05:10 Consult Physician Urgent Consulting Provider: Claudio Curry Consult Reason/Comments: Left ureteral calculus with intractable pain Do you want consulting provider notified?: Yes 08/16/24 09:45 Consult Physician Routine Consulting Provider: Sylvia Chang Consult Reason/Comments: UTI, Positive blood culture Do you want consulting provider notified?: Yes Primary care physician: Joel Rodriguez Hospital Course: Discharge diagnoses: Left ureteral stone: Status post cystoscopy and left ureteral stent placement on 08/09 UTI: Positive blood culture: Contaminant Presented with left-sided flank pain, CT abdomen pelvis showed 6 mm left ureteral stone, urology consulted, underwent cystoscopy and left ureteral stent placement on 08/15, required IV pain medication for pain control. Urine culture grew E. colipansensitive. Blood culture grew staph epidermidis likely contaminant. Infectious disease consulted, received Rocephin during hospitalization, continued on Ceftin at discharge. Outpatient follow-up with urology. Hospital course: This is a 34-year-old female with past medical history significant for recurrent kidney stone who presented to hospital with left-sided flank pain. Patient was noted to have intractable pain in the ED. Patient had a CT abdomen pelvis that showed evidence of 6 mm left-sided proximal stone and a multiple left-sided renal stones. Patient required IV pain medications for pain control. Patient denied any fever, chills, dysuria, hematuria. Patient complained of nausea vomiting associated with pain. Urology was consulted, patient underwent cysto scopy and left ureteral stent placement on 08/15. Patient urine culture grew E. coli, received Rocephin during hospitalization, continued on Ceftin at discharge per infectious disease recommendation. Patient's blood cultures grew Staphylococcus epidermidis likely contaminant, okay to discharge per infectious disease. Patient condition vital stable at discharge. Please refer to medical assessment for further details Follow-up with PCP in 1 week Follow-up with urology as outpatient. PHYSICAL EXAMINATION: GENERAL: The patient is A&O x3, NAD HEENT: EOMI, Sclerae anicteric, Moist Mucous membranes Neck: Supple, Non tender, No JVD PULMONARY: Equal breath souds B/L, No wheezing, No crackles. CARDIOVASCULAR: S1, S2 present. No murmurs, rubs, or gallops. ABDOMEN: Soft, nontender, nondistended, normoactive bowel sounds. No guarding or rebound tenderness. MUSCULOSKELETAL: No edema, No cyanosis. No clubbing. Normal ROM. Intact peripheral pulses. NEUROLOGICAL: CN 2-12 grossly intact. No FND SKIN: No rashes. Dictation was produced using [employer] dictation software. please excuse any grammatical, word or spelling errors. Plan - Discharge Summary Discharge Rx Participant: No New Discharge Prescriptions: New Oxybutynin Xl [Ditropan XL] 5 mg PO DAILY #20 tab oxyCODONE HCL [OxyIR] 5 mg PO Q6HR PRN #12 tab PRN Reason: Pain Ketorolac [Toradol] 10 mg PO Q6HR PRN #15 tab PRN Reason: Pain Acetaminophen Tab [Tylenol] 650 mg PO Q6HR PRN tab PRN Reason: Mild Pain Or Fever > 100.5 cefuroxime axetiL [Ceftin] 500 mg PO BID #20 tab Continue LORazepam [Ativan] 1 mg PO DAILY PRN PRN Reason: Anxiety Discharge Medication List LORazepam [Ativan] 1 mg PO DAILY PRN 08/15/24 [History] Acetaminophen Tab [Tylenol] 650 mg PO Q6HR PRN tab 08/17/24 [Rx] Ketorolac [Toradol] 10 mg PO Q6HR PRN #15 tab 08/17/24 [Rx] Oxybutynin Xl [Ditropan XL] 5 mg PO DAILY #20 tab 08/17/24 [Rx] cefuroxime axetiL [Ceftin] 500 mg PO BID #20 tab 08/17/24 [Rx] oxyCODONE HCL [OxyIR] 5 mg PO Q6HR PRN #12 tab 08/17/24 [Rx] Follow up Appointment(s)/Referral(s): Joel Rodriguez [Primary Care Provider] - 1-2 days
[2024-08-18] MEDS ORDERED: VANCOMYCIN TROUGH DUE 1 EACH MISC MISCELLANE ONE (12:00)
== END 2024-08-17 18:15 | disposition home or self-care (01) | DRG 660 ==
LOC: SUPCPDRO 00:11 → EC 00:11 → 5NMEDONC 05:11
PROVIDERS: ADMIT Hospitalist; ATTEND Hospitalist
PROC: 0T778DZ Dilation of Left Ureter with Intraluminal Device, Via Natural or Artificial Opening Endoscopic (ICD-10-PCS; principal; 2024-08-15 10:40)
DX: N20.2 Calculus of kidney with calculus of ureter (principal); N13.6 Pyonephrosis; F41.9 Anxiety disorder, unspecified; R35.0 Frequency of micturition; F17.210 Nicotine dependence, cigarettes, uncomplicated; B96.20 Unspecified Escherichia coli [E. coli] as the cause of diseases classified elsewhere; Z91.040 Latex allergy status; Z87.442 Personal history of urinary calculi
CPT/HCPCS: 36415; 74176; 80048; 80053; 81001; 81025; 83605; 84145; 84703; 85025; 87040; 87077; 87086; 87186; 96361; 96365; 96375; 96376; 99285

== ENCOUNTER 2024-08-25 16:44 | Emergency (ER) | payer OTHER ==
[2024-08-25 17:34] VITALS: RESP 18; TEMP 98.1
--- NOTE | 2024-08-25 17:46 | ED ---
General Adult HPI - General Source: patient, RN notes reviewed Mode of arrival: ambulatory Limitations: no limitations <Chloe Murguia - Last Filed: 08/25/24 17:49> - General Source: patient, RN notes reviewed, old records reviewed Mode of arrival: ambulatory Limitations: no limitations - History of Present Illness -: days(s) Location: abdomen, pelvis Severity scale (1-10): 7 Quality: sharp Consistency: constant Improves with: none Worsens with: none Associated Symptoms: denies other symptoms Treatments Prior to Arrival: none <Eleazar Jimenez - Last Filed: 08/25/24 22:33> - General Chief complaint: Abdominal Pain Stated complaint: Urogenital Time Seen by Provider: 08/25/24 17:46 - History of Present Illness Initial comments: Quick note: 34-year-old female presents to the emergency department for evaluation of hematuria and suprapubic/left-sided pain. Patient reports that she recently had a stent placed in the left ureter for kidney stone. He states that since then she has had blood in the urine. She reports that today it seems to be worse she also notes dysuria and urinary frequency. (Chloe Murguia) This is a 34 female with abdominal pain. Patient presents with significant abdominal pain which she believes is related to recent stent placement left ureter kidney stone. Patient having dysuria and frequency does not want to urinate secondary to pain (Eleazar Jimenez) - Related Data Home Medications Medication Instructions Recorded Confirmed LORazepam [Ativan] 1 mg PO DAILY PRN 08/15/24 08/15/24 Previous Rx's Medication Instructions Recorded Acetaminophen Tab [Tylenol] 650 mg PO Q6HR PRN tab 08/17/24 Ketorolac [Toradol] 10 mg PO Q6HR PRN #15 tab 08/17/24 Oxybutynin Xl [Ditropan XL] 5 mg PO DAILY #20 tab 08/17/24 cefuroxime axetiL [Ceftin] 500 mg PO BID #20 tab 08/17/24 oxyCODONE HCL [OxyIR] 5 mg PO Q6HR PRN #12 tab 08/17/24 Ciprofloxacin HCl [Cipro] 500 mg PO Q12HR #20 tablet 08/25/24 HYDROcodone/APAP 10-325MG [[place] 1 tab PO Q6H PRN #12 tab 08/25/24 10-726] Allergies Allergy/AdvReac Type Severity Reaction Status Date / Time latex Allergy Rash/Hives Verified 08/25/24 17:34 Review of Systems ROS Other: All systems not noted in ROS Statement are negative. <Chloe Murguia - Last Filed: 08/25/24 17:49> ROS Other: All systems not noted in ROS Statement are negative. <Eleazar Jimenez - Last Filed: 08/25/24 22:33> ROS Statement: Those systems with pertinent positive or pertinent negative responses have been documented in the HPI. Past Medical History Additional Past Medical History / Comment(s): ALISON related to kidney stone UTI, STENT in ureter History of Any Multi-Drug Resistant Organisms: None Reported Past Surgical History: Section Additional Past Surgical History / Comment(s): Lithotripsy right side uretal stent Additional Past Anesthesia/Blood Transfusion Reaction / Comment(s): NA Past Psychological History: Anxiety Smoking Status: Current every day smoker Past Alcohol Use History: None Reported Past Drug Use History: None Reported - Past Family History Mother Family Medical History: Cancer Additional Family Medical History / Comment(s): breast CA, leukemia Father Family Medical History: Diabetes Mellitus <ShantalChloe - Last Filed: 08/25/24 17:49> General Exam Limitations: no limitations <RogelioadyChloe hoover - Last Filed: 08/25/24 17:49> General appearance: alert, in no apparent distress Head exam: Present: atraumatic, normocephalic, normal inspection Eye exam: Present: normal appearance, PERRL, EOMI. Absent: scleral icterus, conjunctival injection, periorbital swelling ENT exam: Present: normal exam, mucous membranes moist Neck exam: Present: normal inspection. Absent: tenderness, meningismus, lymphadenopathy Respiratory exam: Present: normal lung sounds bilaterally. Absent: respiratory distress, wheezes, rales, rhonchi, stridor Cardiovascular Exam: Present: regular rate, normal rhythm, normal heart sounds. Absent: systolic murmur, diastolic murmur, rubs, gallop, clicks GI/Abdominal exam: Present: soft, normal bowel sounds. Absent: distended, t enderness, guarding, rebound, rigid Extremities exam: Present: normal inspection, full ROM, normal capillary refill. Absent: tenderness, pedal edema, joint swelling, calf tenderness Back exam: Present: normal inspection Neurological exam: Present: alert, oriented X3, CN II-XII intact Psychiatric exam: Present: normal affect, normal mood Skin exam: Present: warm, dry, intact, normal color. Absent: rash <Eleazar Jimenez - Last Filed: 08/25/24 22:33> - General Exam Comments Initial Comments: Visual Physical Exam Vital signs reviewed General: Well-appearing, nontoxic, no acute distress. Head: Normocephalic, atraumatic Eyes: PERRLA, EOMI ENT: Airway patent Chest: Nonlabored breathing Skin: No visual rash, normal skin tone Neuro: Alert and oriented 3 Musculoskeletal: No gross abnormalities (Chloe Murguia) Course <Eleazar Jimenez - Last Filed: 08/25/24 22:33> Vital Signs 08/25/24 17:31 Temperature 98.1 F Pulse Rate 104 H Respiratory 18 Rate Blood Pressure 126/82 O2 Sat by Pulse 100 Oximetry - Reevaluation(s) Reevaluation #1: 08/25/24 20:51 Medical records reviewed (Eleazar Jimenez) Reevaluation #2: 08/25/24 20:51 Patient symptoms improved (Eleazar Jimenez) Reevaluation #3: 08/25/24 22:33 Patient informed of results questions answered (Eleazar Jimenez) Reevaluation #4: Was pt. sent in by a medical professional or institution (, PA, REGISTRATION SCHEDULING SPECIALIST, urgent care, hospital, or senior care...) When possible be specific @ -no Did you speak to anyone other than the patient for history (EMS, parent, family, police, friend...)? What history was obtained from this source @ -no Did you review nursing and triage notes (agree or disagree)? Why? @ -agree Are old charts reviewed (outside hosp., previous admission, EMS record, old EKG, old radiological studies, urgent care reports/EKG's, senior care records)? Report findings @ -yes Differential Diagnosis (chest pain, altered mental status, abdominal pain women, abdominal pain men, vaginal bleeding, weakness, fever, dyspnea, syncope, headache, dizziness, GI bleed, back pain, seizure, CVA, palpatations, mental health, musculoskeletal)? @ -prior EKG interpreted by me (3pts min.). @ -yes X-rays interpreted by me (1pt min.). @ -yes negative for acute disease CT interpreted by me (1pt min.). @ -no U/S interpreted by me (1pt. min.). @ -no What testing was considered but not performed or refused? (CT, X-rays, U/S, labs)? Why? @ -none What meds were considered but not given or refused? Why? @ -none Did you discuss the management of the patient with other professionals (professionals i.e. Dr., PA, REGISTRATION SCHEDULING SPECIALIST, lab, RT, psych nurse, social worker health services, tracer lathe set up operator, teacher, chief lifestyle officer, skilled nursing case manager)? Give summary @ -no Was smoking cessation discussed for >3mins.? @ -no Was critical care preformed (if so, how long)? @ -no Were there social determinants of health that impacted care today? How? (Homelessness, low income, unemployed, alcoholism, drug addiction, transportation, low edu. Level, literacy, decrease access to med. care, retirement, rehab)? @ -none Was there de-escalation of care discussed even if they declined (Discuss DNR or withdrawal of care, Hospice)? DNR status @ -no What co-morbidities impacted this encounter? (DM, HTN, Smoking, COPD, CAD, Cancer, CVA, ARF, Chemo, Hep., AIDS, mental health diagnosis, sleep apnea, morbid obesity)? @ -none Was patient admitted / discharged? Hospital course, mention meds given and route, prescriptions, significant lab abnormalities, going to OR and other pertinent info. @ - Undiagnosed new problem with uncertain prognosis? @ -no Drug Therapy requiring intensive monitoring for toxicity (Heparin, Nitro, Insulin, Cardizem)? @ -no Were any procedures done? @ -no Diagnosis/symptom? @ - Acute, or Chronic, or Acute on Chronic? @ -Acute Uncomplicated (without systemic symptoms) or Complicated (systemic symptoms)? @ -Complicated Side effects of treatment? @ -no Exacerbation, Progression, or Severe Exacerbation? @ -exacerbation Poses a threat to life or bodily function? How? (Chest pain, [place], [place], pneumonia, PE, COPD, DKA, ARF, appy, cholecystitis, CVA, Diverticulitis, Homicidal, Suicida l, threat to staff... and all critical care pts) @ -yes (Eleazar Jimenez) Reevaluation #5: Differential Abdominal Pain Women: Appendicitis, Cholecystitis, diverticulosis, ischemic bowel, pancreatitis, hepatitis, UTI, gastroenteritis, AAA, incarcerated hernia, bowel obstruction, constipation, inflammatory bowel, hepatitis, peptic ulcer disease, splenic i nfarction, perforated viscus, vulvitis, ovarian torsion, PID, kidney stone, placenta abruption, this is not meant to be an all-inclusive list (Eleazar Jimenez) Medical Decision Making <Chloe Murguia - Last Filed: 08/25/24 17:49> - Lab Data Result diagrams: 08/25/24 18:43 08/25/24 18:43 - Radiology Data Radiology results: report reviewed (CT abdomen pelvis negative for acute disease), image reviewed <Eleazar Jimenez - Last Filed: 08/25/24 22:33> - Medical Decision Making Quick note preformed and electronically signed by Chloe Murguia PA-C (Chloe Murguia) 34 female to ER for evaluation of significant urinary tract infection kidney stone stent placed. Patient given pain control antibiotics and can be discharged home (Eleazar Jimenez) - Lab Data Lab Results 08/25/24 08/25/24 08/25/24 Range/Units 18:34 18:43 18:43 WBC 10.8 H (3.8-10.6) k/uL RBC 4.84 (3.80-5.40) m/uL Hgb 13.8 (11.4-16.0) gm/dL Hct 42.3 (34.0-46.0) % MCV 87.4 (80.0-100.0) fL MCH 28.6 (25.0-35.0) pg MCHC 32.7 (31.0-37.0) g/dL RDW 14.1 (11.5-15.5) % Plt Count 341 (150-450) k/uL MPV 7.4 Neutrophils % 49 % Lymphocytes % 36 % Monocytes % 5 % Eosinophils % 6 % Basophils % 1 % Neutrophils # 5.3 (1.3-7.7) k/uL Lymphocytes # 3.9 (1.0-4.8) k/uL Monocytes # 0.6 (0-1.0) k/uL Eosinophils # 0.7 (0-0.7) k/uL Basophils # 0.1 (0-0.2) k/uL Sodium 141 (137-145) mmol/L Potassium 4.7 (3.5-5.1) mmol/L Chloride 104 (98-107) mmol/L Carbon Dioxide 27 (22-30) mmol/L Anion Gap 10 mmol/L BUN 17 (7-17) mg/dL Creatinine 1.05 H (0.52-1.04) mg/dL Est GFR (CKD-EPI)AfAm 80 (>60 ml/min/1.73 sqM) Est GFR (CKD-EPI)NonAf 69 (>60 ml/min/1.73 sqM) Glucose 61 L (74-99) mg/dL Plasma Lactic Acid Erich (0.7-2.0) mmol/L Calcium 9.7 (8.4-10.2) mg/dL Phosphorus 4.3 (2.5-4.5) mg/dL Magnesium 1.9 (1.6-2.3) mg/dL Total Bilirubin 0.3 (0.2-1.3) mg/dL AST 23 (14-36) U/L ALT 30 (4-34) U/L Alkaline Phosphatase 78 (38-126) U/L Total Protein 8.0 (6.3-8.2) g/dL Albumin 4.8 (3.5-5.0) g/dL Urine Color Urine Appearance (Clear) Urine pH (5.0-8.0) Ur Specific [place] (1.001-1.035) Urine Protein (Negative) Urine Glucose (UA) (Negative) Urine Ketones (Negative) Urine Blood (Negative) Urine Nitrite (Negative) Urine Bilirubin (Negative) Urine Urobilinogen (<2.0) mg/dL Ur Leukocyte Esterase (Negative) Urine RBC (0-5) /hpf Urine WBC (0-5) /hpf Ur Squamous Epith Cells (0-4) /hpf Urine Mucus (None) /hpf 08/25/24 08/25/24 Range/Units 18:43 18:44 WBC (3.8-10.6) k/uL RBC (3.80-5.40) m/uL Hgb (11.4-16.0) gm/dL Hct (34.0-46.0) % MCV (80.0-100.0) fL MCH (25.0-35.0) pg MCHC (31.0-37.0) g/dL RDW (11.5-15.5) % Plt Count (150-450) k/uL MPV Neutrophils % % Lymphocytes % % Monocytes % % Eosinophils % % Basophils % % Neutrophils # (1.3-7.7) k/uL Lymphocytes # (1.0-4.8) k/uL Monocytes # (0-1.0) k/uL Eosinophils # (0-0.7) k/uL Basophils # (0-0.2) k/uL Sodium (137-145) mmol/L Potassium (3.5-5.1) mmol/L Chloride (98-107) mmol/L Carbon Dioxide (22-30) mmol/L Anion Gap mmol/L BUN (7-17) mg/dL Creatinine (0.52-1.04) mg/dL Est GFR (CKD-EPI)AfAm (>60 ml/min/1.73 sqM) Est GFR (CKD-EPI)NonAf (>60 ml/min/1.73 sqM) Glucose (74-99) mg/dL Plasma Lactic Acid Erich 0.8 (0.7-2.0) mmol/L Calcium (8.4-10.2) mg/dL Phosphorus (2.5-4.5) mg/dL Magnesium (1.6-2.3) mg/dL Total Bilirubin (0.2-1.3) mg/dL AST (14-36) U/L ALT (4-34) U/L Alkaline Phosphatase (38-126) U/L Total Protein (6.3-8.2) g/dL Albumin (3.5-5.0) g/dL Urine Color Light Red Urine Appearance Cloudy H (Clear) Urine pH 6.0 (5.0-8.0) Ur Specific [place] 1.023 (1.001-1.035) Urine Protein 1+ H (Negative) Urine Glucose (UA) Negative (Negative) Urine Ketones Negative (Negative) Urine Blood Large H (Negative) Urine Nitrite Negative (Negative) Urine Bilirubin Negative (Negative) Urine Urobilinogen <2.0 (<2.0) mg/dL Ur Leukocyte Esterase Large H (Negative) Urine RBC >182 H (0-5) /hpf Urine WBC 53 H (0-5) /hpf Ur Squamous Epith Cells 4 (0-4) /hpf Urine Mucus Occasional H (None) /hpf Disposition <Chloe Murguia - Last Filed: 08/25/24 17:49> Is patient prescribed a controlled substance at d/c from ED?: No Time of Disposition: 22:30 <Eleazar Jimenez - Last Filed: 08/25/24 22:33> Clinical Impression: Left ureteral calculus, UTI (urinary tract infection), Intractable pain Disposition: HOME SELF-CARE Condition: Fair Prescriptions: Ciprofloxacin HCl [Cipro] 500 mg PO Q12HR #20 tablet HYDROcodone/APAP 10-325MG [[place] 10-325] 1 tab PO Q6H PRN #12 tab PRN Reason: Pain Referrals: Joel Rodriguez [Primary Care Provider] - 1-2 days
[2024-08-25 19:08] LABS: Basophils # (A) 0.1 k/uL (0-0.2); Basophils % (A) 1 %; Eosinophils # (A) 0.7 k/uL (0-0.7); Eosinophils % (A) 6 %; HCT 42.3 % (34.0-46.0); HGB 13.8 gm/dL (11.4-16.0); Lymphocytes # (A) 3.9 k/uL (1.0-4.8); Lymphocytes % (A) 36 %; MCH 28.6 pg (25.0-35.0); MCHC 32.7 g/dL (31.0-37.0); MCV 87.4 fL (80.0-100.0); Mean Platelet Volume 7.4; Monocytes # (A) 0.6 k/uL (0-1.0); Monocytes % (A) 5 %; Neutrophils # (A) 5.3 k/uL (1.3-7.7); Neutrophils % (A) 49 %; Platelet Count 341 k/uL (150-450); RBC 4.84 m/uL (3.80-5.40); RDW 14.1 % (11.5-15.5); WBC 10.8 k/uL (3.8-10.6)
[2024-08-25 19:30] LABS: ALT 30 U/L (4-34); AST 23 U/L (14-36); African American GFR (CKD) 80 (>60 ml/min/1.73 sqM); Albumin 4.8 g/dL (3.5-5.0); Alkaline Phosphatase 78 U/L (38-126); Anion Gap 10 mmol/L; Blood Urea Nitrogen 17 mg/dL (7-17); Calcium 9.7 mg/dL (8.4-10.2); Carbon Dioxide 27 mmol/L (22-30); Chloride 104 mmol/L (98-107); Glucose 61 mg/dL (74-99); Non-African American GFR(CKD) 69 (>60 ml/min/1.73 sqM); Potassium 4.7 mmol/L (3.5-5.1); Sodium 141 mmol/L (137-145); Total Bilirubin 0.3 mg/dL (0.2-1.3)
[2024-08-25 19:30] LABS: Appearance,Urine Cloudy (Clear); Bilirubin,Urine Negative (Negative); Blood,Urine Large (Negative); Color,Urine Light Red; Glucose,Urine (UA) Negative (Negative); Ketones,Urine Negative (Negative); Leukocyte Esterase,Urine Large (Negative); Mucus,Urine Occasional /hpf; Nitrite,Urine Negative (Negative); Protein,Urine 1+ (Negative); RBC,Urine >182 /hpf (0-5); Specific Gravity,Urine 1.023 (1.001-1.035); Squamous Epithelial Cell,Urine 4 /hpf (0-4); Urobilinogen,Urine <2.0 mg/dL (<2.0); WBC,Urine 53 /hpf (0-5)
[2024-08-25] MEDS: MORPHINE SULFATE 4 MG/ML SYRINGE IV STA (20:16)
[2024-08-25] MEDS: SODIUM CHLORIDE 0.9% 1,000 ML IV STA ×2 (20:18→22:35)
[2024-08-25] MEDS: ONDANSETRON 4 MG/2 ML VIAL IVP STA (20:20)
[2024-08-25 20:41] LABS: Magnesium 1.9 mg/dL (1.6-2.3); Phosphorus 4.3 mg/dL (2.5-4.5)
--- NOTE | 2024-08-25 21:46 | CT ---
EXAMINATION TYPE: CT abdomen pelvis wo con CT DLP: 372.5 mGycm, Automated exposure control for dose reduction was used. DATE OF EXAM: 08/25/2024 8:44 PM COMPARISON: CT abdomen pelvis most recent from CLINICAL INDICATION:Female, 34 years old with history of pain; Stent placed x 1 week ago for bilatera l renal stones. Lower abdomen discomfort TECHNIQUE: Axial CT abdomen pelvis wo con;Sagittal and coronal reformats were created on a separate workstation. Contrast used: mL of , (none if empty) Oral contrast used: without Oral Contrast (none if empty) FINDINGS: LOWER CHEST: Unremarkable ABDOMEN LIVER: Unremarkable GALLBLADDER AND BILE DUCTS: Unremarkable. PANCREAS: Unremarkable. SPLEEN: Unremarkable. ADRENAL GLANDS: Unremarkable. KIDNEYS AND URETERS: Nonobstructive subcentimeter bilateral renal calculi are seen with the largest o f these seen in the left kidney measuring 6 mm. Left ureteral stent is seen with proximal portion in the collecting system with the distal tip seen terminating within the urinary bladder. No evidence of hydronephrosis. The ureters are unremarkable. PELVIS BLADDER: Incompletely distended and grossly unremarkable. The distal tip of the left ureteral stent i s seen within the lumen. REPRODUCTIVE: Unremarkable. ABDOMEN & PELVIS STOMACH AND BOWEL: Stomach is grossly unremarkable. The small bowel is of normal caliber. No evidence of bowel obstruction. PERITONEUM/RETROPERITONEUM: No evidence of pneumoperitoneum or free fluid. VASCULATURE: No evidence of aortic aneurysm. MUSCULOSKELETAL: No acute osseous abnormalities LYMPH NODES: Nonenlarged lymph nodes are seen in the bilateral inguinal region.. SOFT TISSUE/ABDOMINAL WALL: Unremarkable IMPRESSION: 1. Bilateral subcentimeter nonobstructing renal calculi are appreciated. No hydronephrosis. 2. Left ureteral stent is seen in appropriate position. [facility], , 08/25/2024 9:44 PM
[2024-08-25] MEDS: HYDROmorphone 1 MG/ML 1 ML SYRINGE IVP STA (21:58)
[2024-08-25] MEDS: HYDROcodone/APAP 10-325MG 1 EACH TAB PO STA (23:08)
[2024-08-25 23:13] VITALS: BP 126/80; PULSE 85
== END 2024-08-25 23:21 | disposition home or self-care (01) ==
LOC: EC 16:44
DX: N39.0 Urinary tract infection, site not specified (principal); N20.2 Calculus of kidney with calculus of ureter; F17.200 Nicotine dependence, unspecified, uncomplicated; Z91.040 Latex allergy status
CPT/HCPCS: 99284; 96365; 96366; 96375; 96361; 36415; 80053; 83605; 83735; 84100; 85025; 81001; 87086; 74176; J2270; J2405; J0696; J1171

== ENCOUNTER 2024-09-02 09:22 | Day surgery (SDC) | payer OTHER ==
[2024-08-27 15:03] VITALS: BMI 23.1
--- NOTE | 2024-09-01 22:58 | P.HPIHPCON ---
History of Present Illness H&P Date: 09/01/24 Chief Complaint: Ureteral stone, bilateral renal stones This is a 34-year-old female with history of a 6 mm left-sided ureteral stone, status post stent insertion on August 15. She presents today were for left- sided ureteroscopy with holmium laser. Of note she also has bilateral renal stones that she would like to address at the same setting. Discussed with her the option of a bilateral ureteroscopy with holmium laser and stent removal, aware of the risk which includes but not limited to bleeding, infection, injury to the ureter Consent for Procedure: I have explained the operation/procedure to the patient, including the risks, benefits, side effects, alternative therapies (including not receiving the proposed treatment or service), the likelihood of the patient achieving his/her goals, and potential recuperation problems for the procedure/sedation/analgesia, as well as any blood products, if indicated. I also explained to the patient the risks, benefits and side effects of the alternatives, as well as the risks related to not receiving the proposed procedure, care, treatment, or services. Past Medical History Additional Past Medical History / Comment(s): ALISON related to kidney stone, UTI History of Any Multi-Drug Resistant Organisms: None Reported Past Surgical History: Section Additional Past Surgical History / Comment(s): 08-15-24 cystoscopy & left ureteral stent insertion,Lithotripsy right side uretal stent Past Anesthesia/Blood Transfusion Reactions: No Reported Reaction Additional Past Anesthesia/Blood Transfusion Reaction / Comment(s): no hx blood transfusion Smoking Status: Current every day smoker - Past Family History Mother Family Medical History: Cancer Additional Family Medical History / Comment(s): breast CA, leukemia Father Family Medical History: Diabetes Mellitus Medications and Allergies Home Medications Medication Instructions Recorded Confirmed Type LORazepam [Ativan] 1 mg PO DAILY PRN 08/15/24 08/27/24 History Oxybutynin Xl [Ditropan XL] 5 mg PO DAILY #20 tab 08/17/24 08/27/24 Rx Ciprofloxacin HCl [Cipro] 500 mg PO Q12HR #20 tablet 08/25/24 08/27/24 Rx HYDROcodone/APAP 10-325MG [[place] 1 tab PO Q6HR PRN 08/27/24 08/27/24 History 10-325] Allergies Allergy/AdvReac Type Severity Reaction Status Date / Time latex Allergy Rash/Hives Verified 08/27/24 14:55 Surgical - Exam - General no distress, moderate pain - Eyes normal ocular movement, no pale - ENT normal nares, normal mucosa - Respiratory normal expansion, normal respiratory effort Assessment and Plan Assessment: OR for bilateral ureteroscopy, holmium laser lithotripsy, stone basketing and stent removal
[2024-09-02] MEDS ORDERED: fentaNYL (PF) 50 MCG/ML 2 ML AMP IVP PRN (10:02)
[2024-09-02] MEDS ORDERED: LIDOCAINE 1% (10MG/ML) FOR IV START INTRADERMA PRN (10:02)
[2024-09-02] MEDS ORDERED: MIDAZOLAM 2 MG/2 ML VIAL IV PRN (10:02)
--- NOTE | 2024-09-02 10:08 | XR ---
EXAMINATION TYPE: XR KUB DATE OF EXAM: 09/02/2024 9:55 AM COMPARISON: 08/25/2024 CLINICAL INDICATION: Female, 34 years old with history of calculus; TECHNIQUE: One radiographic view of the abdomen was obtained. FINDINGS: The bowel gas pattern is nonspecific without dilated loops of small or large bowel. . Fecal material and gas are demonstrated throughout the colon and rectum. There is no evidence for organome korina or pneumoperitoneum. No acute osseous process. Left ureteral stent with superior and inferior pigtails in appropriate position. Multiple calculi project over the pelvis and left kidney. Calculus near the distal third of the ureter present measuring 5 mm. IMPRESSION: 1. Left ureteral stent in place at multiple calculi in the renal pelvis. Calculus near the distal th ird of the ureter present measuring 5 mm. 2. Nonspecific bowel gas pattern without radiographic evidence for acute process. [facility], , 09/02/2024 10:06 AM
[2024-09-02] MEDS: LACTATED RINGERS 1,000 ML IV SCH (10:26)
[2024-09-02] MEDS: IV FLUID CONTINUATION 1,000 ML IV ONE (10:30)
[2024-09-02] MEDS: ONDANSETRON 4 MG/2 ML VIAL IVP ONE (10:39)
[2024-09-02] MEDS: DEXAMETHASONE SOD PHOSPHATE 4 MG/ML 1 ML VIAL IV ONE (10:39)
[2024-09-02] MEDS: FAMOTIDINE 20 MG/2 ML VIAL IV STA (10:40)
[2024-09-02] MEDS: HYDROmorphone 0.5 MG/0.5 ML SYRINGE IVP PRN (10:41)
[2024-09-02] MEDS ORDERED: KETOROLAC 15 MG/ML 1 ML VIAL ONE (10:55)
[2024-09-02] MEDS ORDERED: LIDOCAINE 1% INJ 10MG/ML (20 ML MDV) ONE (10:55)
[2024-09-02] MEDS ORDERED: GLYCOPYRROLATE 0.2 MG/ML 2 ML VIAL ONE (10:55)
[2024-09-02] MEDS ORDERED: PROPOFOL 10 MG/ML 20 ML VIAL IV ONE (10:55)
[2024-09-02] MEDS ORDERED: PHENYLEPHRINE-0.9% NACL SYG 1,000 MCG/10 ML SYRINGE ONE (10:55)
[2024-09-02] MEDS ORDERED: HYDROmorphone (PF) 1 MG/ML ONE (10:55)
[2024-09-02] MEDS ORDERED: MIDAZOLAM 2 MG/2 ML VIAL ONE (10:55)
[2024-09-02] MEDS ORDERED: fentaNYL (PF) 50 MCG/ML 2 ML AMP ONE (10:55)
--- NOTE | 2024-09-02 12:18 | P.OP ---
Date of Procedure: 09/02/24 Preoperative Diagnosis: Bilateral renal stones, left ureteral stone Postoperative Diagnosis: same Procedure(s) Performed: Cystoscopy, bilateral ureteroscopy, holmium laser lithotripsy, stone basketing and left stent removal Implants: none Anesthesia: LIBBYA Surgeon: Claudio Curry Estimated Blood Loss (ml): 5 Pathology: other (Left ureteral, bilateral renal stones for stone analysis) Condition: stable Disposition: PACU Indications for Procedure: This is a 34-year-old female with history of a 6 mm left-sided ureteral stone, status post stent insertion on August 15. She presents today were for left- sided ureteroscopy with holmium laser. Of note she also has bilateral renal stones that she would like to address at the same setting. Discussed with her the option of a bilateral ureteroscopy with holmium laser and stent removal, aware of the risk which includes but not limited to bleeding, infection, injury to the ureter Operative Findings: Left distal ureteral stone, mid ureteral stone, multiple stones throughout the kidney on the left, 2 stones on the right 1 along the mid and 1 in the lower pole Description of Procedure: Patient brought the operating room, general anesthesia was induced. She was prepped and draped in sterile fashion and placed in a dorsolithotomy position. Cystoscopy fitted with a 21 Iranian sheath was inserted per urethra, cystoscopy was performed which showed no abnormality within the bladder, the left stent was grasped and removed intact. Next a semirigid ureteroscope was inserted per urethra, this was advanced up the left ureteral orifice, at this point 2 stones were encountered in the left ureter 1 in the distal and 1 in the mid ureter. Both stones were fragmented using the holmium laser, stone fragments were removed using the stone basket. This time the ureteroscope was advanced all the way up to the UPJ which showed no additional stones, pullback ureteroscopy was performed showed no injury to the ureter or any ureteral stone fragments that are sizable. As ureteroscope was withdrawn a sensor wire was advanced through. Next an 1113 Iranian access sheath was passed over the wire and into the proximal ureter. Next a flexible ureteroscope was inserted through the access sheath, renoscopy was performed showed multiple stones in the kidney, using the holmium laser the stone was fragmented, any sizable fragments were removed using the stone basket. Repeat renoscopy showed no injury to the kidney or any sizable fragment. On fluoroscopy there was no radiopaque density seen. Pullback ureteroscopy was performed which showed no injury to the ureter or any ureteral stone fragments, at this point attention was carried to the right side, semirigid ureteroscope was inserted per urethra advanced up the right ureteral orifice, scope was advanced all the way up to the UPJ which showed no stones. Pullback ureteroscopy was performed showed no injury to the ureter or any ureteral stones, as the ureteroscope was withdrawn the sensor wire was advanced through, the wire was advanced under fluoroscopy into the kidney. Next I attempted to pass the scope over the wire but I was unable to, at this point a 1113 Iranian access sheath was passed over the wire into the distal ureter, at this point the flexible ureteroscope was inserted through the access sheath, the scope was advanced all the way up to the kidney, renoscopy was performed showed 2 stones 1 in the lower 1 in the midpole. Using the holmium laser the stones were fragmented, sizable fragments were removed using a stone basket. repeat renoscopy showed no injury to the kidney or any sizable fragments, on fluoroscopy there was no radiopaque density seen. Pullback ureteroscopy was performed showed no injury to the ureter or any ureteral stones, there was no ureteral edema thus a stent was not placed. The bladder was emptied at the end of the case. Patient tolerated procedure well secondary covering stable condition
[2024-09-02 12:24] VITALS: TEMP 97.6
[2024-09-02] MEDS ORDERED: LACTATED RINGERS 1,000 ML IV SCH (12:45)
[2024-09-02] MEDS: KETOROLAC 15 MG/ML 1 ML VIAL IVP SCH (12:47)
[2024-09-02] MEDS ORDERED: MORPHINE SULFATE 2 MG/ML SYRINGE IVP STA (12:48)
[2024-09-02] MEDS: MORPHINE SULFATE 4 MG/ML SYRINGE IVP STA (12:49)
--- NOTE | 2024-09-02 13:28 | FL ---
EXAMINATION TYPE: FL guidance operating room DATE OF EXAM: 09/02/2024 12:16 PM COMPARISON: Pre Operative Images if available both CT/MRI or plain film CLINICAL INDICATION: Female, 34 years old with history of CYSOSCOPY LITHO; TECHNIQUE: FL guidance operating room, multiple fluoroscopic images provided for procedure. Total fluoroscopy time: 22.4 seconds Total submitted images to PACS: 2 DAP: [id number] mGym2 Gycm2 uGym2 cGycm2 or equivalent. FINDINGS: Multiple intraoperative fluoroscopic images were taken resulting cystogram. No immediate intraoperati ve complication. Multilevel degeneration changes throughout the spine. IMPRESSION: 1. No evidence for intraoperative complication. 2. Please see the operative/procedural note for further details. [facility], , 09/02/2024 1:25 PM
[2024-09-02] MEDS: HYDROcodone/APAP 5-325MG 1 EACH TAB PO STA (14:17)
[2024-09-02 14:22] VITALS: RESP 16
[2024-09-02 14:46] VITALS: BP 134/89; PULSE 75
[2024-09-03] MEDS ORDERED: MORPHINE SULFATE 2 MG/ML SYRINGE IV PRN (07:00)
== END 2024-09-02 15:19 | disposition home or self-care (01) ==
LOC: OR 09:22
PROVIDERS: ATTEND Urology
DX: N20.2 Calculus of kidney with calculus of ureter (principal); F17.210 Nicotine dependence, cigarettes, uncomplicated; F41.9 Anxiety disorder, unspecified; Z80.3 Family history of malignant neoplasm of breast; Z83.3 Family history of diabetes mellitus; Z91.040 Latex allergy status; Z79.899 Other long term (current) drug therapy
CPT/HCPCS: 82365; 74018; 52353; J2270; J1100; J3360; J0690; J2405; J3490; J1885; J1171; 81025

== ENCOUNTER 2024-09-11 13:15 | Emergency (ER) | payer OTHER ==
[2024-09-11] MEDS: SODIUM CHLORIDE 0.9% 1,000 ML IV STA (14:02)
[2024-09-11] MEDS: KETOROLAC 15 MG/ML 1 ML VIAL IVP STA ×2 (14:03→15:05)
[2024-09-11] MEDS: HYDROmorphone 1 MG/ML 1 ML SYRINGE IVP STA (14:04)
[2024-09-11 14:08] LABS: Basophils % (A) 1 %; Eosinophils # (A) 0.3 k/uL (0-0.7); Eosinophils % (A) 5 %; HCT 40.2 % (34.0-46.0); Lymphocytes # (A) 2.4 k/uL (1.0-4.8); Lymphocytes % (A) 39 %; MCH 28.2 pg (25.0-35.0); MCHC 32.3 g/dL (31.0-37.0); MCV 87.4 fL (80.0-100.0); Monocytes # (A) 0.3 k/uL (0-1.0); Monocytes % (A) 4 %; Neutrophils # (A) 2.9 k/uL (1.3-7.7); Neutrophils % (A) 48 %; Platelet Count 210 k/uL (150-450); RDW 13.5 % (11.5-15.5); WBC 6.1 k/uL (3.8-10.6)
[2024-09-11 14:21] LABS: ALT 19 U/L (4-34); AST 24 U/L (14-36); African American GFR (CKD) >90 (>60 ml/min/1.73 sqM); Albumin 4.5 g/dL (3.5-5.0); Alkaline Phosphatase 68 U/L (38-126); Anion Gap 9 mmol/L; Blood Urea Nitrogen 12 mg/dL (7-17); Calcium 9.8 mg/dL (8.4-10.2); Carbon Dioxide 24 mmol/L (22-30); Chloride 105 mmol/L (98-107); Glucose 98 mg/dL (74-99); Non-African American GFR(CKD) >90 (>60 ml/min/1.73 sqM); Potassium 4.5 mmol/L (3.5-5.1); Sodium 138 mmol/L (137-145); Total Bilirubin 0.6 mg/dL (0.2-1.3); Total Protein 7.5 g/dL (6.3-8.2)
--- NOTE | 2024-09-11 14:25 | ED ---
Abdominal Pain HPI - General Chief Complaint: Abdominal Pain Stated Complaint: R side pain-post op Time Seen by Provider: 09/11/24 14:00 Source: patient, RN notes reviewed Mode of arrival: ambulatory Limitations: no limitations - History of Present Illness Initial Comments: 34-year-old female presenting for right flank pain x 1 week. States on September 02 she had a lithotripsy on the right side with Dr. Curry. States she has had constant dull pain in the right flank since leaving the hospital after the procedure. Admits occasional hematuria. Denies fever, vomiting. States she saw Dr. Curry for her symptoms 2 days ago who prescribed her pain pills that she reports did not help the pain. States she called Dr. Curry today who told her to come to the ER. - Related Data Home Medications Medication Instructions Recorded Confirmed LORazepam [Ativan] 1 mg PO BID 08/15/24 09/11/24 Cephalexin [Keflex] 500 mg PO DAILY 09/11/24 09/11/24 Ketorolac [Toradol] 10 mg PO Q8H PRN 09/11/24 09/11/24 Tamsulosin [Flomax] 0.4 mg PO DAILY 09/11/24 09/11/24 Previous Rx's Medication Instructions Recorded Oxybutynin Xl [Ditropan XL] 5 mg PO DAILY #20 tab 08/17/24 HYDROcodone/APAP 7.5-325MG [Rome 1 tab PO Q6HR PRN 3 Days #12 tab 09/11/24 7.5-325] Allergies Allergy/AdvReac Type Severity Reaction Status Date / Time latex Allergy Rash/Hives Verified 09/11/24 14:18 Review of Systems ROS Statement: Those systems with pertinent positive or pertinent negative responses have been documented in the HPI. ROS Other: All systems not noted in ROS Statement are negative. Past Medical History Additional Past Medical History / Comment(s): ALISON related to kidney stone UTI, STENT in ureter History of Any Multi-Drug Resistant Organisms: None Reported Past Surgical History: Section Additional Past Surgical History / Comment(s): Lithotripsy right side uretal stent Additional Past Anesthesia/Blood Transfusion Reaction / Comment(s): NA Past Psychological History: Anxiety Smoking Status: Current every day smoker - Past Family History Mother Family Medical History: Cancer Additional Family Medical History / Comment(s): breast CA, leukemia Father Family Medical History: Diabetes Mellitus General Exam Limitations: no limitations General appearance: alert, in no apparent distress Head exam: Present: atraumatic, normocephalic, normal inspection Respiratory exam: Present: normal lung sounds bilaterally. Absent: respiratory distress, wheezes, rales, rhonchi, stridor Cardiovascular Exam: Present: regular rate, normal rhythm, normal heart sounds. Absent: systolic murmur, diastolic murmur, rubs, gallop, clicks GI/Abdominal exam: Present: soft, normal bowel sounds. Absent: distended, tenderness, guarding, rebound, rigid Back exam: Present: normal inspection, full ROM. Absent: CVA tenderness (R), CVA tenderness (L) Neurological exam: Present: alert, oriented X3 Psychiatric exam: Present: normal affect, normal mood Skin exam: Present: warm, dry, intact, normal color. Absent: rash Course Vital Signs 09/11/24 09/11/24 13:20 15:03 Temperature 98.5 F Pulse Rate 105 H 74 Respiratory 18 18 Rate Blood Pressure 129/78 114/72 O2 Sat by Pulse 100 99 Oximetry Medical Decision Making - Medical Decision Making Was pt. sent in by a medical professional or institution (, PA, SOCIAL SCIENCE TEACHER, urgent care, hospital, or [facility]...) When possible be specific @ -No Did you speak to anyone other than the patient for history (EMS, parent, family, police, friend...)? What history was obtained from this source @ -No Did you review nursing and triage notes (agree or disagree)? Why? @ -I reviewed and agree with nursing and triage notes Were old charts reviewed (outside hosp., previous admission, EMS record, old EKG, old radiological studies, urgent care reports/EKG's, [facility] records)? Report findings @ -No old charts were reviewed Differential Diagnosis (chest pain, altered mental status, abdominal pain women, abdominal pain men, vaginal bleeding, weakness, fever, dyspnea, syncope, headache, dizziness, GI bleed, back pain, seizure, CVA, palpatations, mental health, musculoskeletal)? @ -Differential Abdominal Pain Women: Appendicitis, Cholecystitis, diverticulosis, ischemic bowel, pancreatitis, hepatitis, UTI, gastroenteritis, AAA, incarcerated hernia, bowel obstruction, constipation, inflammatory bowel, hepatitis, peptic ulcer disease, splenic infarction, perforated viscus, vulvitis, ovarian torsion, PID, kidney stone, placenta abruption, this is not meant to be an all-inclusive list EKG interpreted by me (3pts min.). @ -None X-rays interpreted by me (1pt min.). @ -None done CT interpreted by me (1pt min.). @ -CT abdomen pelvis reveals bilateral punctate nonobstructing renal stones, largest measuring 0.3 cm within right kidney, left ovarian follicle U/S interpreted by me (1pt. min.). @ -None done What testing was considered but not performed or refused? (CT, X-rays, U/S, labs)? Why? @ -None What meds were considered but not given or refused? Why? @ -None Did you discuss the management of the patient with other professionals (professionals i.e. , PA, SOCIAL SCIENCE TEACHER, lab, RT, psych nurse, social science teacher, cat sitter, teacher, motorcycle police officer, showcase maker)? Give summary @ -I spoke with Dr. Curry who reviewed imaging and lab work and recommends discharge if pain is controlled with outpatient follow-up Was smoking cessation discussed for >3mins.? @ -No Was critical care preformed (if so, how long)? @ -No Were there social determinants of health that impacted care today? How? (Homelessness, low income, unemployed, alcoholism, drug addiction, transportatio n, low edu. Level, literacy, decrease access to med. care, detention, rehab)? @ -No Was there de-escalation of care discussed even if they declined (Discuss DNR or withdrawal of care, Hospice)? DNR status @ -No What co-morbidities impacted this encounter? (DM, HTN, Smoking, COPD, CAD, Cancer, CVA, ARF, Chemo, Hep., AIDS, mental health diagnosis, sleep apnea, morbid obesity)? @ -None Was patient admitted / discharged? Hospital course, mention meds given and route, prescriptions, significant lab abnormalities, going to OR and other pertinent info. @ -Discharge. This is a 34-year-old female presenting with right flank pain x 1 week status post lithotripsy with Dr. Curry. Vital signs within acceptable limits. Abdomen is soft and nontender, no CVA tenderness. Analgesics provided. Lab work unremarkable. Urinalysis highly contaminated sample however no sign of urinary tract infection. CT abdomen pelvis reveals bilateral punctate nonobstructing renal stones, largest measuring 0.3 cm within right kidney however no acute process. Additional pain medications provided. Discussed results with patient. I spoke with Dr. Curry who reviewed his imaging and lab work and recommends discharge if pain is controlled with outpatient follow-up. After reevaluation, patient reports symptom control and feels stable for discharge. Patient is provided with short course of Rome for pain control. Appropriate return precautions and follow-up care discussed. It was discussed with my ED attending Dr. Milian. Undiagnosed new problem with uncertain prognosis? @ -No Drug Therapy requiring intensive monitoring for toxicity (Heparin, Nitro, Insulin, Cardizem)? @ -No Were any procedures done? @ -No Diagnosis/symptom? @ -Right flank pain Acute, or Chronic, or Acute on Chronic? @ -Acute Uncomplicated (without systemic symptoms) or Complicated (systemic symptoms)? @ -Uncomplicated Side effects of treatment? @ -No Exacerbation, Progression, or Severe Exacerbation? @ -No Poses a threat to life or bodily function? How? (Chest pain, [place], [place], pneumonia, PE, COPD, DKA, ARF, appy, cholecystitis, CVA, Diverticulitis, Homicidal, Suicidal, threat to staff... and all critical care pts) @ -No - Lab Data Result diagrams: 09/11/24 13:56 09/11/24 13:56 Lab Results 09/11/24 09/11/24 09/11/24 Range/Units 13:56 13:56 13:56 WBC 6.1 (3.8-10.6) k/uL RBC 4.60 (3.80-5.40) m/uL Hgb 13.0 (11.4-16.0) gm/dL Hct 40.2 (34.0-46.0) % MCV 87.4 (80.0-100.0) fL MCH 28.2 (25.0-35.0) pg MCHC 32.3 (31.0-37.0) g/dL RDW 13.5 (11.5-15.5) % Plt Count 210 (150-450) k/uL MPV 7.0 Neutrophils % 48 % Lymphocytes % 39 % Monocytes % 4 % Eosinophils % 5 % Basophils % 1 % Neutrophils # 2.9 (1.3-7.7) k/uL Lymphocytes # 2.4 (1.0-4.8) k/uL Monocytes # 0.3 (0-1.0) k/uL Eosinophils # 0.3 (0-0.7) k/uL Basophils # 0.0 (0-0.2) k/uL Sodium 138 (137-145) mmol/L Potassium 4.5 (3.5-5.1) mmol/L Chloride 105 (98-107) mmol/L Carbon Dioxide 24 (22-30) mmol/L Anion Gap 9 mmol/L BUN 12 (7-17) mg/dL Creatinine 0.67 (0.52-1.04) mg/dL Est GFR (CKD-EPI)AfAm >90 (>60 ml/min/1.73 sqM) Est GFR (CKD-EPI)NonAf >90 (>60 ml/min/1.73 sqM) Glucose 98 (74-99) mg/dL Plasma Lactic Acid Erich 0.9 (0.7-2.0) mmol/L Calcium 9.8 (8.4-10.2) mg/dL Total Bilirubin 0.6 (0.2-1.3) mg/dL AST 24 (14-36) U/L ALT 19 (4-34) U/L Alkaline Phosphatase 68 (38-126) U/L Total Protein 7.5 (6.3-8.2) g/dL Albumin 4.5 (3.5-5.0) g/dL Urine Color Urine Appearance (Clear) Urine pH (5.0-8.0) Ur Specific Hope (1.001-1.035) Urine Protein (Negative) Urine Glucose (UA) (Negative) Urine Ketones (Negative) Urine Blood (Negative) Urine Nitrite (Negative) Urine Bilirubin (Negative) Urine Urobilinogen (<2.0) mg/dL Ur Leukocyte Esterase (Negative) Urine RBC (0-5) /hpf Urine WBC (0-5) /hpf Ur Squamous Epith Cells (0-4) /hpf Urine Bacteria (None) /hpf Urine Mucus (None) /hpf 09/11/24 Range/Units 14:06 WBC (3.8-10.6) k/uL RBC (3.80-5.40) m/uL Hgb (11.4-16.0) gm/dL Hct (34.0-46.0) % MCV (80.0-100.0) fL MCH (25.0-35.0) pg MCHC (31.0-37.0) g/dL RDW (11.5-15.5) % Plt Count (150-450) k/uL MPV Neutrophils % % Lymphocytes % % Monocytes % % Eosinophils % % Basophils % % Neutrophils # (1.3-7.7) k/uL Lymphocytes # (1.0-4.8) k/uL Monocytes # (0-1.0) k/uL Eosinophils # (0-0.7) k/uL Basophils # (0-0.2) k/uL Sodium (137-145) mmol/L Potassium (3.5-5.1) mmol/L Chloride (98-107) mmol/L Carbon Dioxide (22-30) mmol/L Anion Gap mmol/L BUN (7-17) mg/dL Creatinine (0.52-1.04) mg/dL Est GFR (CKD-EPI)AfAm (>60 ml/min/1.73 sqM) Est GFR (CKD-EPI)NonAf (>60 ml/min/1.73 sqM) Glucose (74-99) mg/dL Plasma Lactic Acid Erich (0.7-2.0) mmol/L Calcium (8.4-10.2) mg/dL Total Bilirubin (0.2-1.3) mg/dL AST (14-36) U/L ALT (4-34) U/L Alkaline Phosphatase (38-126) U/L Total Protein (6.3-8.2) g/dL Albumin (3.5-5.0) g/dL Urine Color Yellow Urine Appearance Cloudy H (Clear) Urine pH 7.0 (5.0-8.0) Ur Specific Hope 1.026 (1.001-1.035) Urine Protein Trace H (Negative) Urine Glucose (UA) Negative (Negative) Urine Ketones Negative (Negative) Urine Blood Moderate H (Negative) Urine Nitrite Negative (Negative) Urine Bilirubin Negative (Negative) Urine Urobilinogen 2.0 (<2.0) mg/dL Ur Leukocyte Esterase Negative (Negative) Urine RBC 2 (0-5) /hpf Urine WBC 2 (0-5) /hpf Ur Squamous Epith Cells 21 H (0-4) /hpf Urine Bacteria Rare H (None) /hpf Urine Mucus Many H (None) /hpf Disposition Clinical Impression: Right flank pain Disposition: HOME SELF-CARE Condition: Stable Additional Instructions: Take Rome as needed for pain. Follow-up with Dr. Curry as discussed. Please return to the Emergency Department if symptoms worsen or any other concerns. Prescriptions: HYDROcodone/APAP 7.5-325MG [R[place] 7.5-325] 1 tab PO Q6HR PRN 3 Days #12 tab PRN Reason: Pain Is patient prescribed a controlled substance at d/c from ED?: Yes When asked, does pt state using other controlled substances?: No If prescribed controlled substance>3 days was MAPS reviewed?: Prescribed <3 Days If opioid is for acute pain is fill amount 7 days or less?: Yes Referrals: Joel Rodriguez [Primary Care Provider] - 1-2 days Time of Disposition: 16:15
[2024-09-11 14:26] LABS: Appearance,Urine Cloudy (Clear); Bacteria,Urine Rare /hpf; Bilirubin,Urine Negative (Negative); Blood,Urine Moderate (Negative); Color,Urine Yellow; Glucose,Urine (UA) Negative (Negative); Ketones,Urine Negative (Negative); Leukocyte Esterase,Urine Negative (Negative); Mucus,Urine Many /hpf; Nitrite,Urine Negative (Negative); Protein,Urine Trace (Negative); RBC,Urine 2 /hpf (0-5); Specific Gravity,Urine 1.026 (1.001-1.035); Squamous Epithelial Cell,Urine 21 /hpf (0-4); WBC,Urine 2 /hpf (0-5)
--- NOTE | 2024-09-11 15:00 | CT ---
EXAMINATION TYPE: CT abdomen pelvis wo con DATE OF EXAM: 09/11/2024 2:39 PM COMPARISON: None. CLINICAL INDICATION: Female, 34 years old with history of right flank pain s/p stent, rt flank pain/ post litho TECHNIQUE: Axial images were obtained from above the diaphragm to the pubic rami in the axial plane a t 5 mm thick sections. Reconstructed images are reviewed on the computer in the coronal plane. CONTRAST: mL of . Study performed without Oral Contrast DLP: 319.4 mGycm, Automated exposure control for dose reduction was used. FINDINGS: Limited CT sections are obtained the lung bases. The lung bases are clear. CT ABDOMEN: Liver: Normal Spleen: Normal Pancreas: Normal Adrenal glands: The adrenal glands are normal. Gallbladder: Normal Kidneys: No suspicious fluid collections adjacent to the right kidney. No retroperitoneal hemorrhage identified. No hydronephrosis or hydroureter of either kidney. No masses are evident. No cysts are present. Punctate calcifications without obstruction or in the left mid kidney. Bilateral inferior pole punctate nonobstructing renal stones are present. Largest calcifications at the inferior pole r ight kidney measuring 0.3 cm. Aorta: Vascular calcification is within the aorta. Inferior vena cava: Normal. CT PELVIS: Loops of bowel within the abdomen and pelvis are normal. This study is without oral contrast limi ting evaluation. Appendix: Normal as visualized. Urinary bladder: Decompressed limiting evaluation Genitourinary structures: Minimal physiologic fluid appears to be within the lower pelvis. Uterus is normal. There is a 2.1 cm follicle on the left ovary. Osseous structures: No suspicious lytic or sclerotic lesions. IMPRESSION: 1. Multiple bilateral punctate nonobstructing renal stones, the largest measuring 0.3 cm within the right kidney. 2. Left ovarian follicle [facility], , 09/11/2024 2:57 PM
[2024-09-11 15:04] VITALS: PULSE 74
[2024-09-11] MEDS: HYDROmorphone 0.5 MG/0.5 ML SYRINGE IVP STA (15:06)
[2024-09-11 16:34] VITALS: BP 116/70; RESP 16; TEMP 97.7
== END 2024-09-11 16:34 | disposition home or self-care (01) ==
LOC: EC 13:15
DX: R10.9 Unspecified abdominal pain (principal); N20.0 Calculus of kidney; F17.200 Nicotine dependence, unspecified, uncomplicated; Z91.040 Latex allergy status
CPT/HCPCS: 36415; 80053; 83605; 85025; 81001; 74176; 99284; 96374; 96375; 96376; 96361; J1171 ×2; J1885